=== PATIENT | male | born 1995 | race African-American/Black ===

== ENCOUNTER 2017-09-11 23:14 | Emergency (ER) | payer SELFPAY ==
[2017-09-11] MEDS ORDERED: MAG HYDROX/AL HYDROX/SIMETH SUSP 30 ML UDCUP PO ONE (23:55)
[2017-09-11] MEDS ORDERED: LIDOCAINE 2% VISCOUS SOLN 20 ML UDCUP PO ONE (23:55)
[2017-09-11] MEDS ORDERED: METOCLOPRAMIDE HCL ORAL SOLN 10 MG/10 ML UDCUP PO ONE (23:55)
[2017-09-12] MEDS ORDERED: FAMOTIDINE 20 MG TABLET PO ONE (00:12)
--- NOTE | 2017-09-12 00:21 | ER Document Report ---
ED General - General Chief Complaint: Chest Pain Stated Complaint: CHEST PAIN Time Seen by Provider: 09/11/17 23:54 Notes: Patient is a 22-year-old male without past medical history, no known cardiac history, no history of DVT or pulmonary embolus, had normal stress test at [facility] 3 months ago who presents with an episode of chest pain that started just prior to arrival. Patient is described as a stabbing pain in the center of his chest without radiation of the pain. It did start abruptly. Unchanged since onset. Nothing seems to improve or worsen the pain. He has a history of similar episodes in the past. He is uncertain if he has a history of esophageal reflux. He denies any trauma to the chest. No states that he had nausea, vomiting or shortness of breath. No use of estrogen. TRAVEL OUTSIDE OF THE [place] IN LAST 30 DAYS: No - Related Data Allergies/Adverse Reactions: Penicillins Allergy (Verified 10/20/15 22:27) Past Medical History - General Information source: Patient - Social History Smoking Status: Current Some Day Smoker Chew tobacco use (# tins/day): No Frequency of alcohol use: Social Drug Abuse: None Lives with: Family Family History: Reviewed & Not Pertinent Patient has suicidal ideation: No Patient has homicidal ideation: No Pulmonary Medical History: Reports: Hx Asthma - as child, none now Renal/ Medical History: Denies: Hx Peritoneal Dialysis - Immunizations Hx Diphtheria, Pertussis, Tetanus Vaccination: No Review of Systems - Review of Systems Notes: Constitutional: Negative for fever. HENT: Negative for sore throat. Eyes: Negative for visual changes. Cardiovascular: Positive for chest pain. Respiratory: Negative for shortness of breath. Gastrointestinal: Negative for abdominal pain, vomiting or diarrhea. Genitourinary: Negative for dysuria. Musculoskeletal: Negative for back pain. Skin: Negative for rash. Neurological: Negative for headaches, weakness or numbness. 10 point ROS negative except as marked above and in HPI. Physical Exam - Vital signs Vitals: Temp Pulse Resp BP Pulse Ox 98.7 F 65 18 159/105 H 98 09/11/17 23:33 09/11/17 23:33 09/11/17 23:33 09/11/17 23:33 09/11/17 23:33 Interpretation: Hypertensive Notes: PHYSICAL EXAMINATION: GENERAL: Well-appearing, well-nourished and in no acute distress. HEAD: Atraumatic, normocephalic. EYES: Pupils equal round and reactive to light, extraocular movements intact, sclera anicteric, conjunctiva are normal. ENT: nares patent, oropharynx clear without exudates. Moist mucous membranes. NECK: Normal range of motion, supple without lymphadenopathy LUNGS: Breath sounds clear to auscultation bilaterally and equal. No wheezes rales or rhonchi. HEART: Regular rate and rhythm without murmurs ABDOMEN: Soft, nontender, normoactive bowel sounds. No guarding, no rebound. No masses appreciated. EXTREMITIES: Normal range of motion, no pitting or edema. No cyanosis. NEUROLOGICAL: No focal neurological deficits. Moves all extremities spontaneously and on command. PSYCH: Normal mood, normal affect. SKIN: Warm, Dry, normal turgor, no rashes or lesions noted. Course - Re-evaluation Re-evalutation: 09/12/17 00:10 Presentation of chest pain in an otherwise well appearing patient. Low clinical suspicion for ACS given clinical history, exam, EKG without ST elevations or depressions. Patient does not have any risk factors for cardiac disease and had a normal stress test 3 months ago at [facility]. PE also seems unlikely given clinical history, absence of tachycardia or dyspnea. Patient is PERC criteria negative. CXR without evidence of pneumothorax or pneumonia. No widened mediastinum. Aortic dissection also seems unlikely given history, symmetric pulses, CXR, and vitals. Bedside echocardiogram does not demonstrate any evidence of regional wall motion abnormality or pericardial effusion. Suspect likely musculoskeletal or esophageal origin. At this time will discharge with return precautions and follow-up recommendations. Verbal discharge instructions given a the bedside and opportunity for questions given. Medication warnings reviewed. Patient is in agreement with this plan and has verbalized understanding of return precautions and the need for primary care follow-up in the next 24-72 hours. - Vital Signs Vital signs: Temp Pulse Resp BP Pulse Ox 98.7 F 65 18 159/105 H 98 09/11/17 23:33 09/11/17 23:33 09/11/17 23:33 09/11/17 23:33 09/11/17 23:33 - Diagnostic Test Radiology reviewed: Image reviewed, Reports reviewed Radiology results interpreted by me: 09/12/17 00:50 Chest x-ray: No acute infiltrate or pneumothorax - EKG Interpretation by Me Additional EKG results interpreted by me: 09/12/17 00:50 Normal sinus rhythm. Rate 68. No ST elevations or depressions. QTC is 409. Discharge - Discharge Clinical Impression: Chest pain Qualifiers: Chest pain type: unspecified Qualified Code(s): R07.9 - Chest pain, unspecified Condition: Good Disposition: HOME, SELF-CARE Additional Instructions: You were seen today for chest pain. The exact cause of your pain is unclear. However, based on your cardiac enzyme testing, chest x-ray, and EKG it does not appear that it is from an immediately life-threatening cause at this time. Your symptoms appear to be most consistent with stomach or upper intestinal irritation. Please begin taking famotidine 40 mg in the morning and 40 mg at night. This medicine can be purchased directly [id number]. You may also take medicine such as Pepto-Bismol or Tums to assist with your pain. Please return to emergency department immediately if you have worsening of your chest pain, shortness of breath, vomiting, become unable to exert yourself due to pain or difficulty breathing, you pass out, or have any pain that radiates into your arms, jaw, or back. Please also return if you have any additional symptoms that are concerning to you.
--- NOTE | 2017-09-12 00:24 | RADIOLOGY REPORT (SQ) ---
EXAM DESCRIPTION: CHEST SINGLE VIEW COMPLETED DATE/TIME: 09/12/2017 12:13 am REASON FOR STUDY: chest pain COMPARISON: [id number] EXAM PARAMETERS: NUMBER OF VIEWS: One view. TECHNIQUE: Single frontal radiographic view of the chest acquired. RADIATION DOSE: NA LIMITATIONS: None. FINDINGS: LUNGS AND PLEURA: No opacities, masses or pneumothorax. No pleural effusion. MEDIASTINUM AND HILAR STRUCTURES: No masses. Contour normal. HEART AND VASCULAR STRUCTURES: Heart normal in size. Normal vasculature. BONES: No acute findings. HARDWARE: None in the chest. OTHER: No other significant finding. IMPRESSION: NO ACUTE RADIOGRAPHIC FINDING IN THE CHEST. TECHNICAL DOCUMENTATION: JOB ID: [id number]
[2017-09-12 01:10] VITALS: BP 160/98
--- NOTE | 2017-09-12 09:40 | EKG REPORT ---
SEVERITY:- ABNORMAL ECG - SINUS RHYTHM CONSIDER LEFT VENTRICULAR HYPERTROPHY : Confirmed by: Costa Benavidez 12-Sep-2017 09:39:40
== END 2017-09-12 00:55 | disposition home or self-care (01) ==
LOC: ER 23:14
DX: R07.9 Chest pain, unspecified (principal); F17.200 Nicotine dependence, unspecified, uncomplicated; Z88.0 Allergy status to penicillin
CPT/HCPCS: 93005; 99285; 71010; 93010; J3490

== ENCOUNTER 2018-04-23 15:24 | Emergency (ER) | payer SELFPAY ==
[2018-04-23 15:31] VITALS: BP 140/95
--- NOTE | 2018-04-23 15:52 | ER Document Report ---
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 It is tender. It has some mucoid drainage in the morning. No fever or chills. No visual changes. No hx MRSA, Associated Symptoms: None Exacerbated by: Denies Relieved by: Denies - ROS ROS below otherwise negative: Yes Systems Reviewed and Negative: Yes All other systems reviewed and negative Past Medical History - General Information source: Patient - Social History Smoking Status: Current Every Day Smoker Frequency of alcohol use: None - History Drug Abuse: None Lives with: Family Family History: Reviewed & Not Pertinent Pulmonary Medical History: Reports: Hx Asthma - as child, none now Renal/ Medical History: Denies: Hx Peritoneal Dialysis Surgical Hx: Negative - Immunizations Hx Diphtheria, Pertussis, Tetanus Vaccination: No Vertical Provider Document - CONSTITUTIONAL Agree With Documented VS: Yes Exam Limitations: No Limitations General Appearance: No Apparent Distress - INFECTION CONTROL TRAVEL OUTSIDE OF THE [place] IN LAST 30 DAYS: No - HEENT HEENT: Normocephalic, PERRLA. negative: Conjuctival Injection Notes: sty right upper lateral upper lid, tender, not draining now, he was getting some drainage from it in the mornings. - NECK Neck: Supple - RESPIRATORY Respiratory: Breath Sounds Normal, No Respiratory Distress - CARDIOVASCULAR Cardiovascular: Regular Rate, Regular Rhythm Course - Vital Signs Vital signs: Temp Pulse Resp BP Pulse Ox 98.4 F 79 16 140/95 H 97 04/23/18 15:30 04/23/18 15:30 04/23/18 15:30 04/23/18 15:30 04/23/18 15:30 Discharge - Discharge Clinical Impression: Stye upper right eyelid Condition: Good Disposition: HOME, SELF-CARE Instructions: Antibiotic Therapy ([facility]), Eyedrop Use ([facility]), Sty ([facility]), Sulfa Medications ([facility]), Warm Packs ([facility]) Additional Instructions: Use baby shampoo to wash eyelid margins daily Antibiotic eyedrops See thread laster if this persists sometimes they have to be surgically removed if this does not work Warm compress See family practice doctor for your routine care Return to the emergency room any concerns or recurrent numbness or tingling Prescriptions: Sulfacetamide Sodium [Bleph-10] 2 drop OD QID #5 ml Forms: Return to Work
== END 2018-04-23 16:12 | disposition home or self-care (01) ==
LOC: ER 15:24
DX: H00.021 Hordeolum internum right upper eyelid (principal); F17.200 Nicotine dependence, unspecified, uncomplicated
CPT/HCPCS: 99283

== ENCOUNTER 2018-06-26 18:34 | Emergency (ER) | payer SELFPAY ==
[2018-06-26] MEDS ORDERED: DEXAMETHASONE SOD PHOS INJ 10 MG/1 ML VIAL IV ONE (20:21)
--- NOTE | 2018-06-26 20:23 | ER Document Report ---
ED Medical Screen (RME) - General Chief Complaint: Abdominal Cramping Stated Complaint: HEADACHE/STOMACH PAIN Time Seen by Provider: 06/26/18 20:15 Notes: 22-year-old male presents to the ER complaining of sore throat since Tuesday. He states his throat is really sore also complains some abdominal discomfort complains of muscle aches nausea. States she just feels poorly and weak all over. TRAVEL OUTSIDE OF THE [place] IN LAST 30 DAYS: No - Related Data Allergies/Adverse Reactions: Penicillins Allergy (Verified 10/20/15 22:27) Past Medical History Pulmonary Medical History: Reports: Hx Asthma - as child, none now Renal/ Medical History: Denies: Hx Peritoneal Dialysis - Immunizations Hx Diphtheria, Pertussis, Tetanus Vaccination: No Physical Exam - Vital signs Vitals: Temp Pulse Resp BP Pulse Ox 99.5 F 91 18 159/96 H 100 06/26/18 18:43 06/26/18 18:43 06/26/18 18:43 06/26/18 18:43 06/26/18 18:43 - Notes Notes: Patient has a consistent exudative tonsillitis with 2+ tonsillar hypertrophy. I could not feel his spleen but due to his size and him sitting up this is not unexpected. We will run a Monospot test a rapid strep test and generalized blood will give her some steroids for his discomfort in his throat. Course - Re-evaluation Re-evalutation: Triage assessment 06/26/18 20:25 The patient presents with a significant exudative tonsillitis this is clinical history seems to be more suggestive of mononucleosis and if strep we will do a rapid strep to check a Monospot some lab work and give him some steroids. - Vital Signs Vital signs: Temp Pulse Resp BP Pulse Ox 99.5 F 91 18 159/96 H 100 06/26/18 18:43 06/26/18 18:43 06/26/18 18:43 06/26/18 18:43 06/26/18 18:43
[2018-06-26] MEDS ORDERED: DEXAMETHASONE SOD PHOS INJ 10 MG/1 ML VIAL IM ONE (21:05)
--- NOTE | 2018-06-26 21:48 | ER Document Report ---
ED General - General Chief Complaint: Abdominal Cramping Stated Complaint: HEADACHE/STOMACH PAIN Time Seen by Provider: 06/26/18 20:15 Notes: Patient is a 22-year-old male who comes emergency department for chief complaint of sore throat and feeling feverish since Tuesday (about 3 days). He states that he feels tired, weak, aching all over including some abdominal aches and nausea. No vomiting, no shortness of breath, no difficulty swallowing reported. No obvious sick contacts. No daily medications, denies any past medical history or daily medications. TRAVEL OUTSIDE OF THE [place] IN LAST 30 DAYS: No - Related Data Allergies/Adverse Reactions: Penicillins Allergy (Verified 10/20/15 22:27) Past Medical History - General Information source: Patient - Social History Smoking Status: Former Smoker Frequency of alcohol use: Occasional Drug Abuse: None Lives with: Family Family History: Reviewed & Not Pertinent Patient has suicidal ideation: No Patient has homicidal ideation: No Pulmonary Medical History: Reports: Hx Asthma - as child, none now Renal/ Medical History: Denies: Hx Peritoneal Dialysis Surgical Hx: Negative - Immunizations Hx Diphtheria, Pertussis, Tetanus Vaccination: Yes Review of Systems - Review of Systems Constitutional: See HPI EENT: See HPI Cardiovascular: No symptoms reported Respiratory: No symptoms reported Gastrointestinal: No symptoms reported Genitourinary: No symptoms reported Male Genitourinary: No symptoms reported Musculoskeletal: No symptoms reported Skin: No symptoms reported Hematologic/Lymphatic: No symptoms reported Neurological/Psychological: No symptoms reported Physical Exam - Vital signs Vitals: Temp Pulse Resp BP Pulse Ox 99.5 F 91 18 159/96 H 100 06/26/18 18:43 06/26/18 18:43 06/26/18 18:43 06/26/18 18:43 06/26/18 18:43 - Notes Notes: GENERAL: Alert, interacts well. No acute distress. HEAD: Normocephalic, atraumatic. EYES: Pupils equal, round, and reactive to light. Extraocular movements intact. ENT: Oral mucosa moist, tongue midline. Exudative pharyngitis with tonsillitis , normal uvula, patent airway, unremarkable ENT exam otherwise. NECK: Full range of motion. Supple. Trachea midline. LUNGS: Clear to auscultation bilaterally, no wheezes, rales, or rhonchi. No respiratory distress. HEART: Regular rate and rhythm. No murmur ABDOMEN: Soft, non-tender. Non-distended. Bowel sounds present in all 4 quadrants. EXTREMITIES: Moves all 4 extremities spontaneously. No edema, normal radial and dorsalis pedis pulses bilaterally. No cyanosis. BACK: no cervical, thoracic, lumbar midline tenderness. No saddle anesthesia, normal distal neurovascular exam. NEUROLOGICAL: Alert and oriented x3. Normal speech. [cranial nerves II through XII grossly intact]. PSYCH: Normal affect, normal mood. SKIN: Warm, dry, normal turgor. No rashes or lesions noted. Course - Re-evaluation Re-evalutation: Monotest negative, strep negative. CBC shows elevated monocytes. Vital signs are unremarkable. Patient tolerating p.o. without any difficulty. He has already been given dexamethasone by triage. Soft abdomen, no overt splenomegaly , well-appearing patient. Remaining labs unremarkable. Discussed precautions with mono, recommendations, follow-up, and return precautions. Patient states understanding and agreement. - Vital Signs Vital signs: Temp Pulse Resp BP Pulse Ox 99.5 F 94 18 159/84 H 97 06/26/18 18:43 06/26/18 23:00 06/26/18 23:00 06/26/18 23:00 06/26/18 23:00 - Laboratory Result Diagrams: 06/26/18 21:13 06/26/18 21:13 Laboratory results interpreted by me: 06/26/18 06/26/18 21:13 21:13 WBC 12.0 H Hgb 12.8 L MCH 26.7 L Monocytes % 13.4 H Absolute Monocytes 1.6 H Direct Bilirubin 0.5 H AST 73 H Total Protein 8.3 H Discharge - Discharge Clinical Impression: Exudative pharyngitis Condition: Stable Disposition: HOME, SELF-CARE Additional Instructions: Your laboratory workup indicates that you have a viral infection causing your swollen lymph nodes, sore throat, fevers. The mono test and strep test are both negative. You have been treated with dexamethasone, continue Tylenol or ibuprofen for fever, body aches, rest, drink plenty fluids. Symptoms will resolve with time. There is a chance for swelling of the spleen, please observe precautions and avoid contact sports or injury risk for the next several weeks. Return for any severe abdominal pain passing out, difficulty swallowing or breathing, or any other concerning symptoms. Forms: Return to Work
[2018-06-26 21:55] LABS: ABSOLUTE LYMPHOCYTES (AUTO) 2.1 10^3/uL (0.5-4.7); ABSOLUTE MONOCYTES (AUTO) 1.6 10^3/uL (0.1-1.4); ABSOLUTE NEUT (AUTO) 8.2 10^3/uL (1.7-8.2); BASOPHILS % (AUTO) 0.3 % (0-2); EOSINOPHILS % (AUTO) 0.3 % (0-6); HEMATOCRIT 39.1 % (37.9-51.0); HEMOGLOBIN 12.8 g/dL (13.5-17.0); LYMPHOCYTES % (AUTO) 17.8 % (13-45); MEAN CORPUSCULAR HEMOGLOBIN 26.7 pg (27.0-33.4); MEAN CORPUSCULAR HGB CONC 32.8 g/dL (32.0-36.0); MEAN CORPUSCULAR VOLUME 81 fl (80-97); MONOCYTES % (AUTO) 13.4 % (3-13); PLATELET COUNT 228 10^3/uL (150-450); RED BLOOD COUNT 4.81 10^6/uL (4.35-5.55); RED CELL DISTRIBUTION WIDTH 13.9 % (11.5-14.0); SEGMENTED NEUTROPHILS % (AUTO) 68.2 % (42-78); TOTAL CELLS COUNTED % (AUTO) 100 %
[2018-06-26 22:00] LABS: ALANINE AMINOTRANSFERASE 54 U/L (21-72); ALBUMIN 4.3 g/dL (3.5-5.0); ALKALINE PHOSPHATASE 93 U/L (38-126); ANION GAP 13 (5-19); ASPARTATE AMINO TRANSFERASE 73 U/L (17-59); BILIRUBIN,DIRECT 0.5 mg/dL (0.0-0.4); BILIRUBIN,TOTAL 0.8 mg/dL (0.2-1.3); BLOOD UREA NITROGEN 13 mg/dL (7-20); CALCIUM 9.3 mg/dL (8.4-10.2); CARBON DIOXIDE 30 mmol/L (22-30); CHLORIDE 102 mmol/L (98-107); GLUCOSE 101 mg/dL (75-110); SODIUM 144.8 mmol/L (137-145); TOTAL PROTEIN 8.3 g/dL (6.3-8.2)
[2018-06-26 23:15] VITALS: BP 159/84
== END 2018-06-26 23:05 | disposition home or self-care (01) ==
LOC: ER 18:34
DX: J02.9 Acute pharyngitis, unspecified (principal); D72.821 Monocytosis (symptomatic); R53.83 Other fatigue; R53.1 Weakness; R10.9 Unspecified abdominal pain; R11.0 Nausea; Z88.0 Allergy status to penicillin
CPT/HCPCS: 99284; 96372; 36415; 87070; 87880; 85025; 87077; 86308; 80053; J1100

== ENCOUNTER 2018-12-06 14:11 | Emergency (ER) | payer SELFPAY ==
--- NOTE | 2018-12-06 15:57 | ER Document Report ---
HPI - HPI Time Seen by Provider: 12/06/18 15:12 Pain Level: 2 Notes: Patient is a 23-year-old male who presents to the emergency department with chief complaint of drainage from his right eye. Patient reports this is been going on for approximately 6 months. He states that every morning he wakes up his eyes crusted shut. Throughout the day he pulls out large stringy like mucus and drainage from the right eye. Patient denies any pain to the eye but reports itchiness. Patient currently does not wear any corrective lenses or contacts but he does report wearing contact lenses as a teenager. States this has been many years. - CONSTITUTIONAL Constitutional: DENIES: Fever, Chills - EENT EENT: REPORTS: Eye problems - R eye Past Medical History - General Information source: Patient - Social History Smoking Status: Never Smoker Frequency of alcohol use: Occasional Drug Abuse: None Family History: Reviewed & Not Pertinent Patient has suicidal ideation: No Patient has homicidal ideation: No Pulmonary Medical History: Reports: Hx Asthma - as child, none now Renal/ Medical History: Denies: Hx Peritoneal Dialysis - Immunizations Hx Diphtheria, Pertussis, Tetanus Vaccination: Yes Vertical Provider Document - CONSTITUTIONAL Notes: PHYSICAL EXAMINATION: GENERAL: Well-appearing, well-nourished and in no acute distress. HEAD: Atraumatic, normocephalic. EYES: Pupils equal round extraocular movements intact, conjunctiva are normal, edema to right eyelid with purulent drainage. ENT: Nares patent NECK: Normal range of motion LUNGS: No respiratory distress Musculoskeletal: Normal range of motion NEUROLOGICAL: Normal speech, normal gait. PSYCH: Normal mood, normal affect. SKIN: Warm, Dry, normal turgor, no rashes or lesions noted. - INFECTION CONTROL TRAVEL OUTSIDE OF THE [place] IN LAST 30 DAYS: No Course - Re-evaluation Re-evalutation: Patient's right eye was examined using fluorescein stain under the Wood lamp. No corneal abrasion noted. Patient has moderate swelling to his right upper lid with mild purulent drainage. Dr. Blandon came to the bedside to evaluate the patient. Upon lifting at the upper eyelid there is a stye to the internal surface of the upper eyelid. Will place patient on p.o. doxycycline and have patient follow-up with ophthalmology. I called ophthalmology supervisor display fabrication Dr. Arias who agrees to see this patient in the office for drainage of the stye. Patient will call for an appointment. Patient given ED return precautions. - Vital Signs Vital signs: Temp Pulse Resp BP Pulse Ox 98.6 F 88 18 161/97 H 98 12/06/18 14:16 12/06/18 14:16 12/06/18 14:16 12/06/18 14:16 12/06/18 14:16 Discharge - Discharge Clinical Impression: Internal hordeolum of right eye Qualifiers: Eyelid: upper Qualified Code(s): H00.021 - Hordeolum internum right upper eyelid Condition: Stable Disposition: HOME, SELF-CARE Additional Instructions: Sty Your examination reveals that you have a sty. This is an infection of a hair follicle in the eyelid. As the infection progresses, it forms an abscess along the edge of the eyelid. A sty causes a lot of swelling and tenderness. As the body fights the infection, a lump forms. The knot slowly goes away over a couple of weeks. Treatment includes applying warm compresses to the eye for 10 to 15 minutes every two or three hours. Usually, the infection will drain from the abscess spontaneously, however, some sties require surgical drainage. You may be given antibiotic eye drops to prevent the infection from spreading to the surface of the eye. If the doctor is concerned that the infection is severe, you may be given antibiotics by mouth or shot. Call the doctor at once if vision decreases, if swelling becomes severe, or if eye pain becomes severe. See the doctor for follow-up should you fail to improve as expected. Please use warm compresses to your eye at least 4 times a day. Make sure they are is as hot as you can tolerate. Placed them near the eye for at least 15 minutes. Massage the eye with clean hands. Please take antibiotics as prescribed, doxycycline twice daily for 7 days. Call office [facility] and schedule an appointment so that Dr. Arias can evaluate you and possibly drain the stye. Prescriptions: Doxycycline Hyclate 100 mg PO BID #14 capsule Referrals: SAMREEN ARIAS DO [ACTIVE STAFF] - Follow up as needed
[2018-12-06 16:27] VITALS: BP 152/85
--- NOTE | 2018-12-07 22:48 | ER Document Report ---
Doctor's Note Notes: I personally and independently obtained patient history and examined the patient in conjunction with the APC and agree with the assessment, treatment plan and disposition of the patient as recorded by the APC, and have reviewed the APC's note. HISTORY OF PRESENT ILLNESS: Patient is a 23 year old male that presents to the emergency department for chief complaint of right eye pain and drainage. Patient reports that this has been ongoing for sometime, over weeks time. Denies fevers, chills, headaches, or vision loss. ROS: Constitutional: Negative for fever. Cardiovascular: Negative for chest pain. Respiratory: Negative for shortness of breath. Gastrointestinal: Negative for vomiting or abdominal pain Musculoskeletal: Negative for arm, leg or back pain Skin: Negative for rash. Neurological: Negative for weakness or numbness. Other than noted above, the 12 point review of systems was reviewed with the patient and were negative, all pertinent findings are included in the HPI. PHYSICAL EXAMINATION: Vital signs reviewed, nursing noted reviewed. GENERAL: Well-appearing, well-nourished and in no acute distress. HEAD: Atraumatic, normocephalic. EYES: right upper lid noted to have hordoleum, and drainage. No significant conjunctival injection. EOMI, PERRLA ENT: nares patent, Moist mucous membranes. NECK: Normal range of motion, supple without lymphadenopathy LUNGS: Breath sounds clear to auscultation bilaterally and equal. No wheezes rales or rhonchi. HEART: Regular rate and rhythm without murmurs EXTREMITIES: Nontender, good range of motion, no pitting or edema. NEUROLOGICAL: No focal neurological deficits. Moves all extremities spontaneously Motor and sensory grossly intact on exam. PSYCH: Normal mood, normal affect. SKIN: Warm, Dry, normal turgor, no rashes or lesions noted on exposed MEDICAL DECISION MAKING: Patient exam most consitent with stye, that may need incision and drainage from ophthalmology given duration of symptoms, recommend treatment with doxycycline and follow-up with ophthalmology at this point, and patient is agreeable with this plan of care. Please review detail APC documentation. *Note is created using voice recognition software and may contain spelling, syntax or grammatical errors.
== END 2018-12-06 16:27 | disposition home or self-care (01) ==
LOC: ER 14:11
DX: H00.021 Hordeolum internum right upper eyelid (principal)
CPT/HCPCS: 99283

== ENCOUNTER 2019-02-08 11:26 | Emergency (ER) | payer SELFPAY ==
[2019-02-08 11:31] VITALS: BP 164/95
--- NOTE | 2019-02-08 12:08 | ER Document Report ---
ED General - General Chief Complaint: Drainage from Eye Stated Complaint: RIGHT EYE IRRITATION, DRAINAGE Time Seen by Provider: 02/08/19 11:53 Primary Care Provider: IRVIN CACERES MD [ACTIVE STAFF] - Follow up tomorrow Notes: Patient is a 23-year-old male that presents to the emergency department for chief complaint of right eye drainage. Patient reports this is been going on for the last few days, seemingly gotten worse over time, he had a similar episode about a month ago, was on doxycycline and it did get better for some time, but then it seemed to get worse again at the same [place] been affected. He denies any any fevers, chills, night sweats. He does have some pain associated with this, he currently rates the pain as a 3 out of 10. He has had some blurred vision with it, but denies having any pain with extraocular eye movement. 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 Denies a loss of vision. Past Medical History: Denies chronic medical conditions Past Surgical History: Denies surgical history Social History: Denies tobacco, alcohol or drug use. Family History: Reviewed and noncontributory for presenting illness Allergies: Reviewed, see documented allergy list. REVIEW OF SYSTEMS: Other than noted above, the 12 point review of systems was reviewed with the patient and were negative, all pertinent findings are included in the HPI. PHYSICAL EXAMINATION: Vital signs reviewed, nursing noted reviewed. GENERAL: Well-appearing, well-nourished and in no acute distress. HEAD: Atraumatic, normocephalic. EYES: Right conjunctival injection, with purulent drainage, preseptal swelling and edema mild tenderness and erythema. Fluorescein dye exam, negative for corneal abrasion or noted foreign body. The lids were flipped, no foreign body noted. Left eye is unremarkable, EOMI, PERRLA. ENT: Moist mucous membranes. NECK: Normal range of motion, supple without lymphadenopathy LUNGS: Breath sounds clear to auscultation bilaterally and equal. No wheezes rales or rhonchi. HEART: Regular rate and rhythm without murmurs EXTREMITIES: Nontender, good range of motion, no pitting or edema. NEUROLOGICAL: No focal neurological deficits. Moves all extremities spontaneously Motor and sensory grossly intact on exam. PSYCH: Normal mood, normal affect. SKIN: Warm, Dry, normal turgor, no rashes or lesions noted on exposed skin TRAVEL OUTSIDE OF THE [place] IN LAST 30 DAYS: No - Related Data Allergies/Adverse Reactions: Penicillins Allergy (Verified 02/08/19 11:28) Past Medical History - Social History Smoking Status: Current Some Day Smoker Family History: Reviewed & Not Pertinent Patient has suicidal ideation: No Patient has homicidal ideation: No Pulmonary Medical History: Reports: Hx Asthma - as child, none now Renal/ Medical History: Denies: Hx Peritoneal Dialysis - Immunizations Hx Diphtheria, Pertussis, Tetanus Vaccination: Yes Physical Exam - Vital signs Vitals: Temp Pulse Resp BP Pulse Ox 97.9 F 84 16 164/95 H 98 02/08/19 11:30 02/08/19 11:30 02/08/19 11:30 02/08/19 11:30 02/08/19 11:30 Course - Re-evaluation Re-evalutation: Patient seen and examined vital signs reviewed. Patient was evaluated and treated as appropriate for the patient's presenting symptoms and complaint, with consideration of any critical or life threatening conditions that may be associated with their obtained history and exam as noted above. Patient was treated with tetracaine eyedrops, did feel better afterwards, and exam did not reveal any foreign body or corneal abrasion, was most consistent with preseptal cellulitis Evaluation was most consistent with preseptal cellulitis, will treat with ciprofloxacin, twice daily for 7 days, as well as Cipro drops, he was previously on doxycycline and had recurrence, will have him follow-up with ophthalmology, given referral. Plan of care was discussed with the patient at this point, after careful consideration I feel that that patient can be discharged from the emergency department, the patient was educated treatments and reasons to return to the emergency department based on their presumed diagnosis as noted above, they were advised to followup with a primary care physician in 2-3 days. Patient was agreeable to plan of care. *Note is created using voice recognition software and may contain spelling, syntax or grammatical errors. - Vital Signs Vital signs: Temp Pulse Resp BP Pulse Ox 97.9 F 84 16 164/95 H 98 02/08/19 11:30 02/08/19 11:30 02/08/19 11:30 02/08/19 11:30 02/08/19 11:30 Discharge - Discharge Clinical Impression: Preseptal cellulitis of right eye Condition: Stable Disposition: HOME, SELF-CARE Instructions: Conjunctivitis ([facility]) Additional Instructions: Please complete the entire course of antibiotics, and use the eyedrops as directed, and follow-up with ophthalmology, call for an appointment today. Prescriptions: RX: Ciprofloxacin HCl [Ciloxan] 1 drp OD Q4H 5 Days #1 bottle RX: Ciprofloxacin HCl [Cipro 500 mg Tablet] 500 mg PO BID #14 tablet Forms: Return to Work Referrals: IRVIN CACERES MD [ACTIVE STAFF] - Follow up tomorrow
== END 2019-02-08 12:13 | disposition home or self-care (01) ==
LOC: ER 11:26
DX: L03.213 Periorbital cellulitis (principal); H57.11 Ocular pain, right eye; H53.8 Other visual disturbances; F17.200 Nicotine dependence, unspecified, uncomplicated; J45.909 Unspecified asthma, uncomplicated
CPT/HCPCS: 99283

== ENCOUNTER 2019-06-21 00:04 | Emergency (ER) | payer SELFPAY ==
[2019-06-21] MEDS ORDERED: ACETAMINOPHEN 325 MG TABLET PO ONE (01:03)
[2019-06-21] MEDS ORDERED: ONDANSETRON HCL 8 MG TABLET PO ONE (01:03)
[2019-06-21] MEDS ORDERED: IBUPROFEN 800 MG TABLET PO ONE (01:03)
[2019-06-21 01:25] LABS: ABSOLUTE BASOPHILS # (AUTO) 0.1 10^3/uL (0.0-0.2); ABSOLUTE LYMPHOCYTES (AUTO) 1.5 10^3/uL (0.5-4.7); ABSOLUTE MONOCYTES (AUTO) 1.4 10^3/uL (0.1-1.4); ABSOLUTE NEUT (AUTO) 12.2 10^3/uL (1.7-8.2); BASOPHILS % (AUTO) 0.6 % (0-2); EOSINOPHILS % (AUTO) 0.2 % (0-6); HEMATOCRIT 40.3 % (37.9-51.0); LYMPHOCYTES % (AUTO) 9.9 % (13-45); MEAN CORPUSCULAR HEMOGLOBIN 25.7 pg (27.0-33.4); MEAN CORPUSCULAR HGB CONC 32.4 g/dL (32.0-36.0); MEAN CORPUSCULAR VOLUME 79 fl (80-97); MONOCYTES % (AUTO) 9.4 % (3-13); PLATELET COUNT 235 10^3/uL (150-450); RED BLOOD COUNT 5.08 10^6/uL (4.35-5.55); RED CELL DISTRIBUTION WIDTH 13.9 % (11.5-14.0); SEGMENTED NEUTROPHILS % (AUTO) 79.9 % (42-78); TOTAL CELLS COUNTED % (AUTO) 100 %; WHITE BLOOD COUNT 15.3 10^3/uL (4.0-10.5)
[2019-06-21 01:42] LABS: ALBUMIN 4.4 g/dL (3.5-5.0); ALKALINE PHOSPHATASE 101 U/L (38-126); ANION GAP 9 (5-19); ASPARTATE AMINO TRANSFERASE 25 U/L (17-59); BILIRUBIN,DIRECT 0.2 mg/dL (0.0-0.4); BILIRUBIN,TOTAL 0.8 mg/dL (0.2-1.3); BLOOD UREA NITROGEN 12 mg/dL (7-20); CALCIUM 9.2 mg/dL (8.4-10.2); CARBON DIOXIDE 29 mmol/L (22-30); CHLORIDE 101 mmol/L (98-107); GLUCOSE 114 mg/dL (75-110); POTASSIUM 3.9 mmol/L (3.6-5.0); TOTAL PROTEIN 7.6 g/dL (6.3-8.2)
[2019-06-21] MEDS ORDERED: AZITHROMYCIN 250 MG TABLET PO ONE (02:00)
[2019-06-21] MEDS ORDERED: PREDNISONE 20 MG TABLET PO ONE (02:00)
[2019-06-21 02:55] VITALS: BP 136/64
--- NOTE | 2019-06-21 04:37 | ER Document Report ---
Entered by MADAI ACKERMAN SCRIBE 06/21/19 0104 Acting as scribe for:RAMESH RENTERIA MD ED General - General Chief Complaint: Vomiting Stated Complaint: HEADACHE,NAUSEA,VOMITING,SORE THROAT Time Seen by Provider: 06/21/19 00:55 Notes: Patient is a 23-year-old male presenting to the emergency department complaining of multiple symptoms. Patient states that he is experiencing neck cramping, sore throat, chills, he is been extremely cold. Patient states that he also vomited today at 1600. Patient was here recently for something similar, he was discharged. Patient states that he had asthma as a kid but does not have it anymore. This 23-year-old male patient comes emergency room initially reporting a 2-day history of chills, throat pain, and back cramping. He reports that he vomited about 4 PM once. On reviewing records, I found that he was seen here on 06/15/2019 with headache, sore throat, URI symptoms. He had a rapid strep done at that time that was negative. There was no other lab work done. When have mentioned this to the patient, he then reports that his symptoms have actually been ongoing since 06/15/2019, and got worse in the past 2 days. TRAVEL OUTSIDE OF THE [place] IN LAST 30 DAYS: No - Related Data Allergies/Adverse Reactions: Penicillins Allergy (Verified 06/15/19 19:03) Past Medical History - General Information source: Patient - Social History Smoking Status: Never Smoker Cigarette use (# per day): No Chew tobacco use (# tins/day): No Frequency of alcohol use: None Drug Abuse: None Lives with: Spouse/Significant other Family History: Hypertension Pulmonary Medical History: Reports: Hx Asthma - as child, none now Renal/ Medical History: Denies: Hx Peritoneal Dialysis - Immunizations Hx Diphtheria, Pertussis, Tetanus Vaccination: Yes Review of Systems - Review of Systems Constitutional: See HPI, Chills EENT: No symptoms reported Cardiovascular: No symptoms reported Respiratory: See HPI, Other - Sore throat Gastrointestinal: See HPI, Vomiting Genitourinary: No symptoms reported Male Genitourinary: No symptoms reported Musculoskeletal: See HPI, Neck pain - Cramping Skin: No symptoms reported Hematologic/Lymphatic: No symptoms reported Neurological/Psychological: No symptoms reported -: Yes All other systems reviewed and negative Physical Exam - Vital signs Vitals: Temp Pulse Resp BP Pulse Ox 101.4 F H 109 H 16 183/103 H 100 06/21/19 00:08 06/21/19 00:08 06/21/19 00:08 06/21/19 00:08 06/21/19 00:08 - Notes Notes: Physical Exam: General: Alert, appears well. HEENT:TMs retracted. Tonsillar exudate with erythema. Posterior pharyngeal erythema with minimal edema to the uvula. Anterior cervical gland swelling, with mild tenderness to palpation. Atraumatic. PERRL. Extraocular movements intact. Neck: Supple. Non-tender. Respiratory: No respiratory distress. Clear and equal breath sounds bilaterally. Cardiovascular: Regular rate and rhythm. Abdominal: Normal Inspection. Non-tender. No distension. Normal Bowel Sounds. Back: Non-tender. Extremities: Moves all four extremities. Upper extremities: Normal inspection. Normal ROM. Lower extremities: Normal inspection. No edema. Normal ROM. Neurological: Normal cognition. AAOx4. Normal speech. Psychological: Normal affect. Normal Mood. Skin: Warm. Dry. Normal color. Course - Vital Signs Vital signs: Temp Pulse Resp BP Pulse Ox 98.9 F 90 20 136/64 H 99 06/21/19 02:54 06/21/19 02:54 06/21/19 02:54 06/21/19 02:54 06/21/19 02:54 - Laboratory Result Diagrams: 06/21/19 01:00 06/21/19 01:00 Laboratory results interpreted by me: 06/21/19 06/21/19 01:00 01:00 WBC 15.3 H Hgb 13.0 L MCV 79 L MCH 25.7 L Seg Neutrophils % 79.9 H Lymphocytes % 9.9 L Absolute Neutrophils 12.2 H Glucose 114 H Discharge - Discharge Clinical Impression: Strep pharyngitis Fever Qualifiers: Fever type: unspecified Qualified Code(s): R50.9 - Fever, unspecified High blood pressure Qualifiers: Hypertension type: essential hypertension Qualified Code(s): I10 - Essential (primary) hypertension Condition: Stable Disposition: HOME, SELF-CARE Additional Instructions: Strep Throat Your sore throat is due to the streptococcus germ (strep throat). Strep throat usually makes you feel quite ill with fever and aches, headache, swollen sore throat, and tender bumps under the angles of the jaw. Strep throat requires antibiotic treatment. Although the sore throat may go away by itself, complications such as rheumatic fever, kidney disease, or throat abscess can occur. We usually prescribe antibiotics by mouth. Be sure to take the medicine until it's gone. If you stop early, the strep may come back. If you are vomiting, are severely ill, or can't remember to take pills, we can give you an antibiotic shot. Take acetaminophen or ibuprofen for pain and fever. Sip frequent clear liquids, or use popsicles or ice chips. Anesthetic sprays or lozenges may help. Make sure the air in the room is not too dry. Avoid using decongestants or antihistamines. Call the doctor if there is no improvement in three days, or if you have difficulty breathing, increasing throat pain, high fever, rash, or frequent vomiting. High Blood Pressure, Requiring Treatment: Your blood pressure is high. This is called "hypertension." Today's reading was 183/103 (normal is less than 140/90). Your history and exam suggest that this is not a temporary problem. You need treatment of your blood pressure. Hypertension: The patient has been informed that they haveHypertension based on a blood pressure reading in the emergency department. I recommend that the patient call the primary care provider listed on their discharge instructions or a physician of their choice this wee to arrange follow up for further evaluation of possible pre-hypertension or Hypertension. If left untreated, high blood pressure greatly increases your risk of heart attack and stroke. Please don't ignore this problem. If you have blood pressure medicine but aren't using it regularly, start taking it again. Some simple things you can do to help are: Get some aerobic exercise for at least 20 minutes on a daily basis. (See your doctor before beginning any new exercise program.) Eat a low-fat diet. Lose excess weight. Avoid salty foods and avoid adding salt to any of the foods you eat. Avoid diet pills, deco ngestants, "energizing" herbs, and other medicines that elevate blood pressure. There are many different medicines that treat blood pressure. If your medication causes unpleasant side effects, call your doctor. There are others you can try. Treating hypertension is a life-long investment in your health. Take medications as prescribed. Drink plenty of fluids and get plenty of rest. Take Tylenol every 4 hours for fever. Follow-up with a local primary care provider to start treating your high blood pressure. RETURN TO THE EMERGENCY ROOM IF ANY NEW OR WORSENING SYMPTOMS. Prescriptions: Azithromycin [Zithromax 250 mg Tablet] 250 mg PO ASDIR PRN #6 tablet PRN Reason: Forms: Return to Work Scribe Attestation: 06/21/19 02:05 I personally performed the services described in the documentation, reviewed and edited the documentation which was dictated to the scribe in my presence, and it accurately records my words and actions. I personally performed the services described in the documentation, reviewed and edited the documentation which was dictated to the scribe in my presence, and it accurately records my words and actions.
== END 2019-06-21 03:00 | disposition home or self-care (01) ==
LOC: ER 00:04
DX: J02.0 Streptococcal pharyngitis (principal); R51 Headache; I10 Essential (primary) hypertension; R11.2 Nausea with vomiting, unspecified; J45.909 Unspecified asthma, uncomplicated
CPT/HCPCS: 99283; 36415; 87880; 85025; 86308; 80053; S0119; J7512

== ENCOUNTER 2019-06-21 16:26 | Emergency (ER) | payer SELFPAY ==
[2019-06-21] MEDS ORDERED: ACETAMINOPHEN 325 MG TABLET PO ONE (17:31)
[2019-06-21] MEDS ORDERED: NORMAL SALINE 1000 ML 1,000 ML IV PRN (17:31)
[2019-06-21] MEDS ORDERED: KETOROLAC TROMETHAMINE INJ/PF 30 MG/1 ML SDV IV ONE (17:32)
[2019-06-21] MEDS ORDERED: DIPHENHYDRAMINE HCL 50 MG/ML VIAL IV ONE (17:32)
[2019-06-21] MEDS ORDERED: ONDANSETRON HCL INJ/PF 4 MG/2 ML SDV IV ONE (17:32)
[2019-06-21] MEDS ORDERED: DEXAMETHASONE SOD PHOS INJ 10 MG/1 ML VIAL IV ONE (17:32)
--- NOTE | 2019-06-21 17:42 | ER Document Report ---
ED Medical Screen (RME) - General Chief Complaint: Headache Stated Complaint: DIZZINESS Time Seen by Provider: 06/21/19 17:35 Mode of Arrival: Ambulatory Information source: Patient Notes: 23-year-old male presented to ED for complaint of headache x6 days. He states he was seen here yesterday and was diagnosed with strep and high blood pressure. He states he was at work today when he passed out. He states he was diagnosed with strep yesterday and given a azithromycin. He is alert and oriented but states he feels horrible. I have greeted and performed a rapid initial assessment of this patient. A comprehensive ED assessment and evaluation of the patient, analysis of test results and completion of medical decision making process will be conducted by an additional ED providers. Dictation of this chart was performed using voice recognition software; therefore, there may be some unintended grammatical errors. TRAVEL OUTSIDE OF THE [place] IN LAST 30 DAYS: No - Related Data Allergies/Adverse Reactions: Penicillins Allergy (Verified 06/21/19 16:27) Past Medical History Pulmonary Medical History: Reports: Hx Asthma - as child, none now Renal/ Medical History: Denies: Hx Peritoneal Dialysis - Immunizations Hx Diphtheria, Pertussis, Tetanus Vaccination: Yes Physical Exam - Vital signs Vitals: Temp Pulse Resp BP Pulse Ox 102.6 F H 103 H 20 167/85 H 99 06/21/19 16:41 06/21/19 16:41 06/21/19 16:41 06/21/19 16:41 06/21/19 16:41 Course - Vital Signs Vital signs: Temp Pulse Resp BP Pulse Ox 102.6 F H 103 H 20 142/72 H 99 06/21/19 16:41 06/21/19 16:41 06/21/19 16:41 06/21/19 17:35 06/21/19 16:41
[2019-06-21 18:20] LABS: ABSOLUTE LYMPHOCYTES (AUTO) 1.8 10^3/uL (0.5-4.7); ABSOLUTE MONOCYTES (AUTO) 1.8 10^3/uL (0.1-1.4); ABSOLUTE NEUT (AUTO) 14.4 10^3/uL (1.7-8.2); BASOPHILS % (AUTO) 0.3 % (0-2); HEMATOCRIT 39.6 % (37.9-51.0); HEMOGLOBIN 12.9 g/dL (13.5-17.0); LYMPHOCYTES % (AUTO) 10.1 % (13-45); MEAN CORPUSCULAR HGB CONC 32.5 g/dL (32.0-36.0); MEAN CORPUSCULAR VOLUME 80 fl (80-97); MONOCYTES % (AUTO) 10.2 % (3-13); PLATELET COUNT 251 10^3/uL (150-450); RED BLOOD COUNT 4.96 10^6/uL (4.35-5.55); RED CELL DISTRIBUTION WIDTH 14.2 % (11.5-14.0); SEGMENTED NEUTROPHILS % (AUTO) 79.4 % (42-78); TOTAL CELLS COUNTED % (AUTO) 100 %; WHITE BLOOD COUNT 18.1 10^3/uL (4.0-10.5)
[2019-06-21 18:30] LABS: APPEARANCE,URINE CLEAR; BILIRUBIN,URINE NEGATIVE (NEGATIVE); COLOR,URINE YELLOW; GLUCOSE, URINE NEGATIVE (NEGATIVE); KETONES,URINE NEGATIVE (NEGATIVE); LEUKOCYTE ESTERASE,URINE NEGATIVE (NEGATIVE); NITRITE,URINE NEGATIVE (NEGATIVE); PROTEIN,URINE NEGATIVE (NEGATIVE); URINE SPECIFIC GRAVITY 1.027
[2019-06-21 18:36] LABS: ADD MANUAL MICROSCOPIC YES
[2019-06-21 18:45] LABS: ALBUMIN 4.4 g/dL (3.5-5.0); ALKALINE PHOSPHATASE 104 U/L (38-126); ANION GAP 10 (5-19); ASPARTATE AMINO TRANSFERASE 27 U/L (17-59); BILIRUBIN,DIRECT 0.3 mg/dL (0.0-0.4); BILIRUBIN,TOTAL 0.5 mg/dL (0.2-1.3); BLOOD UREA NITROGEN 15 mg/dL (7-20); C-REACTIVE PROTEIN 78.6 mg/L (<10.0); CALCIUM 9.1 mg/dL (8.4-10.2); CARBON DIOXIDE 30 mmol/L (22-30); CHLORIDE 99 mmol/L (98-107); GLUCOSE 104 mg/dL (75-110); POTASSIUM 3.6 mmol/L (3.6-5.0); TOTAL PROTEIN 7.8 g/dL (6.3-8.2)
[2019-06-21] MEDS ORDERED: MORPHINE SULFATE 10 MG/ML INJ IV ONE (20:51)
--- NOTE | 2019-06-21 20:52 | ER Document Report ---
ED General - General Chief Complaint: Headache Stated Complaint: DIZZINESS Time Seen by Provider: 06/21/19 17:35 Primary Care Provider: [facility] [Provider Group] - Follow up as needed [facility] [Provider Group] - Follow up as needed Mode of Arrival: Ambulatory Notes: Patient is a 23-year-old male that comes emergency department for chief complaint of sore throat, fevers, weakness, and he states he went to work but passed out while he was standing at work. He did hit the back of his head, however he denies vomiting, he denies current headache, he states his throat hurts and he feels really weak. Patient was seen here yesterday, diagnosed with positive strep throat from a throat swab, took 1 dose of azithromycin 500 mg earlier today. He denies other medications or medical problems. He denies alcohol today. TRAVEL OUTSIDE OF THE [place] IN LAST 30 DAYS: No - Related Data Allergies/Adverse Reactions: Penicillins Allergy (Verified 06/21/19 16:27) Past Medical History - General Information source: Patient - Social History Smoking Status: Current Every Day Smoker Smoking Education Provided: Yes - <3 min Frequency of alcohol use: None Drug Abuse: None Lives with: Family Family History: Hypertension Patient has suicidal ideation: No Patient has homicidal ideation: No Pulmonary Medical History: Reports: Hx Asthma - as child, none now Renal/ Medical History: Denies: Hx Peritoneal Dialysis - Immunizations Hx Diphtheria, Pertussis, Tetanus Vaccination: Yes Review of Systems - Review of Systems Constitutional: See HPI EENT: See HPI Cardiovascular: No symptoms reported Respiratory: No symptoms reported Gastrointestinal: No symptoms reported Genitourinary: No symptoms reported Male Genitourinary: No symptoms reported Musculoskeletal: No symptoms reported Skin: No symptoms reported Hematologic/Lymphatic: No symptoms reported Neurological/Psychological: See HPI Physical Exam - Vital signs Vitals: Temp Pulse Resp BP Pulse Ox 102.6 F H 103 H 20 167/85 H 99 06/21/19 16:41 06/21/19 16:41 06/21/19 16:41 06/21/19 16:41 06/21/19 16:41 - Notes Notes: GENERAL: Alert, interacts well. No acute distress. HEAD: Normocephalic, atraumatic. EYES: Pupils equal, round, and reactive to light. Extraocular movements intact. ENT: Oral mucosa moist, tongue midline. Exudative pharyngitis, uvula midline, no evidence of abscess. Airway patent. Nares patent, no nasal septal hematoma, TM's intact. NECK: Full range of motion. Supple. Trachea midline. LUNGS: Clear to auscultation bilaterally, no wheezes, rales, or rhonchi. No respiratory distress. HEART: Regular rate and rhythm. No murmur ABDOMEN: Soft, non-tender. Non-distended. Bowel sounds present in all 4 quadrants. GENITOURINARY: Deferred EXTREMITIES: Moves all 4 extremities spontaneously. No edema, normal radial and dorsalis pedis pulses bilaterally. No cyanosis. BACK: no cervical, thoracic, lumbar midline tenderness. No saddle anesthesia, normal distal neurovascular exam. Moves all extremities in full range of motion. NEUROLOGICAL: Alert and oriented x3. Normal speech. Cranial nerves II through XII grossly intact. PSYCH: Normal affect, normal mood. SKIN: Warm, dry, normal turgor. No rashes or lesions noted. Course - Re-evaluation Re-evalutation: On my exam patient is very well-appearing. He denies headache. He denies any current symptoms. There is no open wound or sign of injury over the back of the head where he states he hit his head. No neurological deficits. Denies alcohol, loss of consciousness, vomiting. Based on his evaluation I have very low suspicion of any intracranial normality. Patient does have exudative phar yngitis, he is tolerating his secretions very well, his physical examination is otherwise completely unremarkable. CBC does show leukocytosis, he did have a positive strep test. Urine showing dehydration. Patient has been given pain medicine, IV fluids, dexamethasone, and he is on azithromycin because of his allergy to penicillin. He states he gets anaphylaxis with penicillin. He should have appropriate coverage. Provided with work-release, discussed expectations, follow-up, and return precautions. Patient states understanding and agreement. Note: Patient is tall and lanky, I suspect the 119 kg was placed incorrectly and patient is actually 119 pounds. - Vital Signs Vital signs: Temp Pulse Resp BP Pulse Ox 99.4 F 76 17 145/79 H 96 06/21/19 21:03 06/21/19 21:03 06/21/19 21:03 06/21/19 21:03 06/21/19 21:03 - Laboratory Result Diagrams: 06/21/19 18:02 06/21/19 18:02 Laboratory results interpreted by me: 06/21/19 06/21/19 06/21/19 17:46 18:02 18:02 WBC 18.1 H Hgb 12.9 L MCH 26.0 L RDW 14.2 H Seg Neutrophils % 79.4 H Lymphocytes % 10.1 L Absolute Neutrophils 14.4 H Absolute Monocytes 1.8 H C-Reactive Protein 78.6 H Urine Urobilinogen 4.0 H Urine Ascorbic Acid 20 H Discharge - Discharge Clinical Impression: Strep pharyngitis, Exudative pharyngitis Episode of syncope Qualifiers: Syncope type: unspecified Qualified Code(s): R55 - Syncope and collapse Condition: Stable Disposition: HOME, SELF-CARE Additional Instructions: You have a strep throat infection of the throat causing swelling of the throat, weakness, and fevers. You have been treated with dexamethasone, this should help improve your symptoms of throat swelling and general symptoms more rapidly. Continue the antibiotic intake to completion. Take Tylenol or ibuprofen if needed for fever, drink plenty fluids, and rest. Symptoms should resolve with time. Return if you worsen including difficulty breathing or swallowing, continued spiking fevers, or any other concerning symptoms. See head injury precautions listed below. Your blood pressure was elevated today. Please follow-up with the primary care referral for additional management of this. Head Injury Precautions At this point, there is no evidence that your head injury is serious. Observati on is necessary, however. Limit activity for the first 24 hours. During the first 24 hours, check to see approximately every two to three hours that the patient is easily arousable, responds normally, and can perform common tasks such as walking without difficulty. Contact your doctor or go to the hospital if any of the following things occur: Persistent vomiting, difficulty in arousing the patient, worsening or continued headache, or failure to improve as expected. Head injuries can cause symptoms that persist for a few days or even a few weeks. Forms: Return to Work, Elevated Blood Pressure Referrals: [facility] [Provider Group] - Follow up as needed [facility] [Provider Group] - Follow up as needed
[2019-06-21 21:05] VITALS: BP 145/79
== END 2019-06-21 21:18 | disposition home or self-care (01) ==
LOC: ER 16:26
DX: J02.0 Streptococcal pharyngitis (principal); R51 Headache; R50.9 Fever, unspecified; R53.1 Weakness; F17.200 Nicotine dependence, unspecified, uncomplicated
CPT/HCPCS: 99283; 96361; 96374; 96375; 36415; 83605; 87070; 86140; 81001; J1200; J1885; J2270; J2405; J7030; J1100

== ENCOUNTER 2019-09-08 12:43 | Emergency (ER) | payer SELFPAY ==
[2019-09-08] MEDS ORDERED: ONDANSETRON HCL INJ/PF 4 MG/2 ML SDV IV ONE (12:48)
[2019-09-08] MEDS ORDERED: NORMAL SALINE 1000 ML 1,000 ML IV ONE (12:48)
--- NOTE | 2019-09-08 12:49 | ER Document Report ---
ED Medical Screen (RME) - General Stated Complaint: VOMITING,DIRREHA Time Seen by Provider: 09/08/19 12:46 Mode of Arrival: Ambulatory Information source: Patient Notes: Patient presents complaining of nausea vomiting diarrhea that started this morning. Patient complains of left lower quadrant pain that radiates to the back. No fever. I have greeted and performed a rapid initial assessment of this patient. A com prehensive ED assessment and evaluation of the patient, analysis of test results and completion of the medical decision making process will be conducted by additional ED providers. TRAVEL OUTSIDE OF THE [place] IN LAST 30 DAYS: No - Related Data Allergies/Adverse Reactions: Penicillins Allergy (Verified 06/21/19 16:27) Past Medical History Pulmonary Medical History: Reports: Hx Asthma - as child, none now Renal/ Medical History: Denies: Hx Peritoneal Dialysis - Immunizations Hx Diphtheria, Pertussis, Tetanus Vaccination: Yes Physical Exam - Abdominal Tenderness: Tender - Left lower quadrant
[2019-09-08 13:33] LABS: ABSOLUTE EOSINOPHILS # (AUTO) 0.1 10^3/uL (0.0-0.6); ABSOLUTE LYMPHOCYTES (AUTO) 2.6 10^3/uL (0.5-4.7); ABSOLUTE MONOCYTES (AUTO) 0.7 10^3/uL (0.1-1.4); ABSOLUTE NEUT (AUTO) 4.2 10^3/uL (1.7-8.2); BASOPHILS % (AUTO) 0.5 % (0-2); EOSINOPHILS % (AUTO) 1.9 % (0-6); HEMATOCRIT 41.9 % (37.9-51.0); HEMOGLOBIN 13.7 g/dL (13.5-17.0); MEAN CORPUSCULAR HEMOGLOBIN 26.4 pg (27.0-33.4); MEAN CORPUSCULAR HGB CONC 32.6 g/dL (32.0-36.0); MEAN CORPUSCULAR VOLUME 81 fl (80-97); MONOCYTES % (AUTO) 8.7 % (3-13); PLATELET COUNT 252 10^3/uL (150-450); RED BLOOD COUNT 5.18 10^6/uL (4.35-5.55); SEGMENTED NEUTROPHILS % (AUTO) 54.9 % (42-78); TOTAL CELLS COUNTED % (AUTO) 100 %; WHITE BLOOD COUNT 7.7 10^3/uL (4.0-10.5)
[2019-09-08] MEDS ORDERED: FAMOTIDINE INJ/PF 20 MG/2 ML SDV IV ONE (13:47)
[2019-09-08] MEDS ORDERED: LOPERAMIDE HCL 2 MG CAPSULE PO ONE (13:47)
--- NOTE | 2019-09-08 13:49 | ER Document Report ---
ED General - General Chief Complaint: Nausea/Vomiting/Diarrhea Stated Complaint: VOMITING,DIRREHA Time Seen by Provider: 09/08/19 12:46 Mode of Arrival: Ambulatory Information source: Patient, [facility] Records Notes: 24-year-old male with no reported past medical history presents with complaint of nausea, vomiting, diarrhea that started this morning. Patient states that he awoke at 5 AM and began vomiting and shortly afterward has had persistent diarrhea that has been nonbloody. Patient denies recent antibiotic use, travel but has had sick contacts with the daughter who is in preschool with similar symptoms. Patient denies abdominal pain, chest pain, shortness of breath, fever, chills. TRAVEL OUTSIDE OF THE [place] IN LAST 30 DAYS: No - HPI Onset: Just prior to arrival Onset/Duration: Sudden Quality of pain: Achy Severity: Mild Associated symptoms: Diarrhea, Nausea, Vomiting. denies: Chest pain, Chills, Nonproductive cough, Fever, Shortness of breath Exacerbated by: Denies Relieved by: Denies Similar symptoms previously: No Recently seen / treated by doctor: No - Related Data Allergies/Adverse Reactions: Penicillins Allergy (Verified 06/21/19 16:27) Past Medical History - General Information source: Patient - Social History Smoking Status: Current Every Day Smoker Cigarette use (# per day): Yes - 10 Chew tobacco use (# tins/day): No Smoking Education Provided: Yes - Smoking cessation counseling was provided for 4 minutes at the bedside Frequency of alcohol use: None Drug Abuse: None Lives with: Family Family History: Hypertension Patient has suicidal ideation: No Patient has homicidal ideation: No Pulmonary Medical History: Reports: Hx Asthma - as child, none now Renal/ Medical History: Denies: Hx Peritoneal Dialysis - Immunizations Hx Diphtheria, Pertussis, Tetanus Vaccination: Yes Review of Systems - Review of Systems Notes: REVIEW OF SYSTEMS: CONSTITUTIONAL : Denies fever, chills, or sweats. Denies recent illness. Denies weight loss, recent hospitalizations. EENT: Denies visual changes, eye pain. Denies sore throat, oral lesions, difficulty swallowing. CARDIOVASCULAR: Denies chest pain. Denies palpitations. Denies lower extremity edema. RESPIRATORY: Denies cough. Denies shortness of breath, wheezing. GASTROINTESTINAL: Denies abdominal pain or distention. + nausea, vomiting, or diarrhea. Denies blood in vomitus, stools, or per rectum. Denies black, tarry stools. Denies constipation. GENITOURINARY: Denies difficulty urinating, painful urination, frequency, blood in urine, testicular pain or penile discharge. MUSCULOSKELETAL: Denies back or neck pain or stiffness. Denies joint pain or swelling. SKIN: Denies rash, lesions or sores. HEMATOLOGIC : Denies easy bruising or bleeding. LYMPHATIC: Denies swollen glands. NEUROLOGICAL: Denies confusion or altered mental status. Denies loss of consciousness. Denies dizziness or lightheadedness. Denies headache. Denies weakness or paralysis. Denies problems difficulty with ambulation, slurred speech. Denies sensory loss, numbness, or tingling. Denies seizures. PSYCHIATRIC: Denies anxiety or stress. Denies depression, suicidal ideation, or PHYSICAL EXAMINATION: GENERAL: Well-appearing, well-nourished and in no acute distress. HEAD: Atraumatic, normocephalic. EYES: Pupils equal round and reactive to light, extraocular movements intact, sclera anicteric, conjunctiva are normal. ENT: Nares patent, oropharynx clear without exudates. Moist mucous membranes. NECK: Normal range of motion, supple without lymphadenopathy LUNGS: Breath sounds clear to auscultation bilaterally and equal. No wheezes rales or rhonchi. HEART: Regular rate and rhythm without murmurs ABDOMEN: Soft, nontender, nondistended abdomen. No guarding, no rebound. No masses appreciated. Musculoskeletal: Normal range of motion, no pitting or edema. No cyanosis. NEUROLOGICAL: Cranial nerves grossly intact. Normal speech, normal gait. Normal sensory, motor exams PSYCH: Normal mood, normal affect. SKIN: Warm, Dry, normal turgor, no rashes or lesions noted. Physical Exam - Vital signs Vitals: Temp Pulse Resp BP Pulse Ox 98.3 F 75 16 165/105 H 100 09/08/19 12:46 09/08/19 12:46 09/08/19 12:46 09/08/19 12:46 09/08/19 12:46 Course - Re-evaluation Re-evalutation: Laboratory 09/08/19 09/08/19 13:17 13:17 WBC 7.7 RBC 5.18 Hgb 13.7 Hct 41.9 MCV 81 MCH 26.4 L MCHC 32.6 RDW 14.0 Plt Count 252 Lymph % (Auto) 34.0 Ray % (Auto) 8.7 Eos % (Auto) 1.9 Baso % (Auto) 0.5 Absolute Neuts (auto) 4.2 Absolute Lymphs (auto) 2.6 Absolute Monos (auto) 0.7 Absolute Eos (auto) 0.1 Absolute Basos (auto) 0.0 Seg Neutrophils % 54.9 Sodium 142.3 Potassium 4.1 Chloride 105 Carbon Dioxide 31 H Anion Gap 6 BUN 11 Creatinine 0.94 Est GFR ( Amer) > 60 Est GFR (MDRD) Non-Af > 60 Glucose 120 H Calcium 9.3 Total Bilirubin 0.3 Direct Bilirubin 0.1 Neonat Total Bilirubin Not Reportable Neonat Direct Bilirubin Not Reportable Neonat Indirect Bili Not Reportable AST 32 ALT 35 Alkaline Phosphatase 112 Total Protein 7.7 Albumin 4.2 Lipase 53.2 Temp Pulse Resp BP Pulse Ox 98.3 F 75 16 165/105 H 100 09/08/19 12:46 09/08/19 12:46 09/08/19 12:46 09/08/19 12:46 09/08/19 12:46 09/08/19 13:49 Presentation of an overall well-appearing patient in no acute distress with complaints of nausea, vomiting, diarrhea. This is consistent with likely viral gastroenteritis. Patient has no abdominal tenderness on exam and specifically no tenderness in the RLQ, LLQ, RUQ. Overall well hydrated on exam. Able to tolerate oral intake here in the emergency department. Low clinical suspicion for any acute life-threatening etiology based on exam and history including acute cholecystitis, SBO, appendicitis, nephrolithiasis, or pylonephritis. CMP without evidence of acute hepatitis or significant dehydration. Will plan for discharge at this time with return precautions and followup recommendations. 09/08/19 14:18 Patient was evaluated and treated as appropriate for the patient's presenting symptoms and complaint, with consideration of any critical or life threatening conditions that may be associated with their obtained history and exam as noted above. All results were discussed with patient . Patient provided the opportunity to ask questions, and express concerns. Patient was educated on treatments based on their presumed diagnosis as noted above. At this time we will discharge the patient with return precautions and follow-up recommendations. Verbal discharge instructions given a the bedside. Medication warnings reviewed. Patient is in agreement with this plan and has verbalized understanding of return precautions. After careful consideration I feel that that patient can be safely discharged from the emergency department, they were advised to followup with a primary care physician in 2-3 days. Dictation on this chart was performed using voice recognition software and may result in unintended grammatical, spelling, syntax or errors. - Vital Signs Vital signs: Temp Pulse Resp BP Pulse Ox 98.3 F 75 16 165/105 H 100 09/08/19 12:46 09/08/19 12:46 09/08/19 12:46 09/08/19 12:46 09/08/19 12:46 - Laboratory Result Diagrams: 09/08/19 13:17 09/08/19 13:17 Laboratory results interpreted by me: 09/08/19 09/08/19 13:17 13:17 MCH 26.4 L Carbon Dioxide 31 H Glucose 120 H Discharge - Discharge Clinical Impression: Nausea vomiting and diarrhea, Elevated blood pressure reading Condition: Good Disposition: HOME, SELF-CARE Instructions: Antinausea Medication ([facility]), Diarrhea, Nonspecific ([facility]), Intravenous (IV) Fluids ([facility]) Additional Instructions: Your symptoms are likely due to a viral illness and should resolve in the next several days. You can take [id number] loperamide also known as Imodium as needed for diarrhea per box instructions. Continue to stay hydrated with plenty of solution such as Gatorade or Pedialyte. You are being prescribed Zofran to take as needed for nausea and vomiting. Please return if you develop severe abdominal pain, pass out, become unable to tolerate any oral fluids for 12 more hours, or any other symptoms that are concerning to you. Regarding Blood Pressure: Your blood pressure was noted to be greater than 120/80 at least once in the emergency room today. It is recommended that you follow-up with her primary care physician in the next week for repeat blood pressure check. The Centers for Medicare and Medicaid Services has specific recommendations regarding a person's blood pressure. There are several lifestyle modifications that are recommended in order to help lower your blood pressure. These include: Quitting smoking if you smoke. Reducing the amount of sodium in your diet. Getting regular exercise Limiting alcohol to no more than 2 drinks a day for men and one drink a day for women. Eating a healthy diet, including more fruits and vegetables, low fat dairy products, less saturated and total fat. Losing weight if you are overweight. FOLLOW-UP: Call your doctor's office and let them know your blood pressure was elevated and you were advised to get your blood pressure checked in the above time-line. If you are unable to get into your doctor's office in this time period, you can follow-up with a new physician (I have left the numbers below for a few primary care doctors affiliated with this [facility]) or return to the ER. PRIMARY CARE PHYSICIANS: Dr. Myron Chaudhary [address], [place] [address] [phone] Dr Smith Address: [address] , [place] [address] Dr Hightower Address: [address] , [place] [address] Follow up with your [id number] hours for further care or return to the ED IMMEDIATELY if symptoms worsen or you have any concerns. If you cannot afford to follow up with your primary care physician a list of low cost clinics have been provided at the end of your discharge papers as well. Most prescribed medications have multiple side effects. The safest thing to do is when filling your prescription speak to your pharmacist regarding possible interactions with your normal home medications and over the counter medications such as Ibuprofen, Tylenol, Benadryl. If you experience any symptoms that cause you discomfort or concern you should discontinue the medication immediately and return to the emergency room or call your primary care physician. Prescriptions: Famotidine [Pepcid 40 mg Tablet] 40 mg PO DAILY 10 Days #10 tablet Ondansetron [Zofran Odt 4 mg Tablet] 1 - 2 tab PO Q4H PRN #15 tab.rapdis PRN Reason: For Nausea/Vomiting Forms: Elevated Blood Pressure, Smoking Cessation Education, Return to Work
[2019-09-08 13:50] LABS: ALBUMIN 4.2 g/dL (3.5-5.0); ALKALINE PHOSPHATASE 112 U/L (38-126); ANION GAP 6 (5-19); ASPARTATE AMINO TRANSFERASE 32 U/L (17-59); BILIRUBIN,DIRECT 0.1 mg/dL (0.0-0.4); BILIRUBIN,TOTAL 0.3 mg/dL (0.2-1.3); BLOOD UREA NITROGEN 11 mg/dL (7-20); CALCIUM 9.3 mg/dL (8.4-10.2); CARBON DIOXIDE 31 mmol/L (22-30); CHLORIDE 105 mmol/L (98-107); GLUCOSE 120 mg/dL (75-110); POTASSIUM 4.1 mmol/L (3.6-5.0); TOTAL PROTEIN 7.7 g/dL (6.3-8.2)
[2019-09-08] MEDS ORDERED: ONDANSETRON ODT 4 MG TAB (6 TAB/ER DISP) PO PRN (14:19)
[2019-09-08 15:05] VITALS: BP 151/90
== END 2019-09-08 14:36 | disposition home or self-care (01) ==
LOC: ER 12:43
DX: R11.2 Nausea with vomiting, unspecified (principal); R19.7 Diarrhea, unspecified; R03.0 Elevated blood-pressure reading, without diagnosis of hypertension; R10.32 Left lower quadrant pain; M54.9 Dorsalgia, unspecified; J45.909 Unspecified asthma, uncomplicated; F17.210 Nicotine dependence, cigarettes, uncomplicated
CPT/HCPCS: 36415; 83690; 85025; 80053; J2405; J7030; S0028; 96361; 96374; 96375; 99284

== ENCOUNTER 2019-10-28 14:56 | Emergency (ER) | payer SELFPAY ==
[2019-10-28] MEDS ORDERED: PREDNISONE 20 MG TABLET PO ONE (15:13)
[2019-10-28] MEDS ORDERED: IPRATROPIUM/ALBUTEROL 0.5-2.5 MG/3 ML AMPUL NEB ONE (15:13)
--- NOTE | 2019-10-28 15:13 | ER Document Report ---
ED Respiratory Problem - General Chief Complaint: Asthma Exacerbation Stated Complaint: COUGH,CONGESTION/NEEDS MED REFILL Time Seen by Provider: 10/28/19 15:08 Primary Care Provider: Betty Basilio [Outside] - Follow up in 1 week TRAVEL OUTSIDE OF THE [place] IN LAST 30 DAYS: No - HPI Notes: 24-year-old male to the emergency department with history of asthma with complaints of an asthma exasperations since yesterday. He states that he was visiting his mother in [place] when he began to have an asthma attack. He states that with his asthma attacks he usually gets cough and feels like his chest is tight and congested. He states he went to the ER done in [place] last night and was given a couple breathing treatments and 1 dose of steroids. He states that today he continues to feel short of breath and like his asthma is not well controlled. He states that he usually gets a steroid Dosepak to go when his asthma is giving him trouble and he is did not get a prescription last night in [place]. He states that he is here to have his asthma treated and to get steroids. He states that he does not have any more albuterol nebulizer solution for home use. He was last hospitalized for his asthma 6 months ago. He has never been intubated for his asthma. He does not smoke. - Related Data Allergies/Adverse Reactions: Penicillins Allergy (Verified 10/28/19 15:09) Past Medical History - General Information source: Patient - Social History Smoking Status: Never Smoker Chew tobacco use (# tins/day): No Frequency of alcohol use: None Drug Abuse: None Lives with: Family Family History: Reviewed & Not Pertinent, Hypertension Patient has suicidal ideation: No Patient has homicidal ideation: No Pulmonary Medical History: Reports: Hx Asthma - as child, none now Renal/ Medical History: Denies: Hx Peritoneal Dialysis - Immunizations Hx Diphtheria, Pertussis, Tetanus Vaccination: Yes Review of Systems - Review of Systems Constitutional: denies: Chills, Fever EENT: denies: Ear pain Cardiovascular: denies: Chest pain, Palpitations, Heart racing, Syncope, Dizziness, Lightheaded Respiratory: Cough, Short of breath, Wheezing Gastrointestinal: denies: Abdominal pain, Diarrhea, Nausea, Vomiting Genitourinary: No symptoms reported Male Genitourinary: No symptoms reported Musculoskeletal: No symptoms reported Skin: No symptoms reported Hematologic/Lymphatic: No symptoms reported Neurological/Psychological: No symptoms reported -: Yes All other systems reviewed and negative Physical Exam - Vital signs Vitals: Temp Pulse Resp BP Pulse Ox 98.6 F 78 18 156/89 H 99 10/28/19 15:07 10/28/19 15:07 10/28/19 15:07 10/28/19 15:07 10/28/19 15:07 Interpretation: Hypertensive - General General appearance: Appears well, Alert In distress: None Notes: Ambulates into triage with no difficulty - HEENT Head: Normocephalic, Atraumatic Eyes: Normal Pupils: PERRL - Respiratory Respiratory status: No respiratory distress. No: Retractions, Tachypnea, Tripod position Chest status: Nontender Breath sounds: Decreased air movement - Decreased air movement throughout but no active wheezing. Patient does state that he recently took his albuterol inhaler pump.. No: Nonproductive cough, Productive cough, Rales, Rhonchi, Stridor, Wheezing Chest palpation: Normal - Cardiovascular Rhythm: Regular Heart sounds: Normal auscultation Murmur: No - Abdominal Inspection: Normal Distension: No distension Bowel sounds: Normal Tenderness: Nontender. 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 No: Pronator drift Sensory: Normal - Psychological Associated symptoms: Normal affect, Normal mood - Skin Skin Temperature: Warm Skin Moisture: Dry Skin Color: Normal Course - Re-evaluation Re-evalutation: 10/28/19 15:21 Patient to the emergency department with persistent asthma exasperations since yesterday. He was seen in another ER and in [place] and given breathing treatments and a one-time dose of steroids. He is not exactly sure what kind of steroid he got. He states that he did not get any to go home with and he feels like he needs more of a taper than just a one-time dose. He states he is continued to wheeze and have shortness of breath today. States he typically coughs with his asthma. He denies any other upper respiratory symptoms such as fever, sore throat, ear pain. Will give breathing treatment and prednisone and reevaluate. 10/28/19 Patient has improved after breathing treatment. He states he feels like he can get a much better breath. Re-auscultation shows better air movement again with no wheezing. Will discharge home with albuterol solution and steroid Dosepak. Patient agrees with the plan. Impression: Acute asthma exacerbation. We will follow the treatment plan as outlined above. Have encouraged patient to return if any worsening symptoms such as worsening shortness of breath, chest pain, passing out or any other concerns. Patient agrees with plan. - Vital Signs Vital signs: Temp Pulse Resp BP Pulse Ox 98.0 F 79 18 155/97 H 98 10/28/19 15:52 10/28/19 15:52 10/28/19 15:52 10/28/19 15:52 10/28/19 15:52 Discharge - Discharge Clinical Impression: Asthma Qualifiers: Asthma severity: mild Asthma persistence: persistent Asthma complication type: with acute exacerbation Qualified Code(s): J45.31 - Mild persistent asthma with (acute) exacerbation Condition: Stable Disposition: HOME, SELF-CARE Instructions: Asthma ([facility]) Additional Instructions: TAKE MEDICINES PRESCRIBED. RETURN IF WORSE. PUSH FLUIDS. RETURN IF WORSE. Prescriptions: Prednisone [Deltasone 10 mg Tablet] 10 mg PO ASDIR PRN #21 tablet PRN Reason: Albuterol Sulfate [Ventolin 0.083% Neb 2.5 mg/3 mL Ampul] 1 vial NEB Q4 #100 vial Forms: Return to Work Referrals: [facility] [Outside] - Follow up in 1 week
[2019-10-28 15:54] VITALS: BP 155/97
== END 2019-10-28 16:32 | disposition home or self-care (01) ==
LOC: ER 14:56
DX: Z76.0 Encounter for issue of repeat prescription (principal); J45.31 Mild persistent asthma with (acute) exacerbation; R05 Cough; R09.81 Nasal congestion; R09.89 Other specified symptoms and signs involving the circulatory and respiratory systems
CPT/HCPCS: 94640; 99284; J7512; J7620

== ENCOUNTER 2019-11-10 13:27 | Emergency (ER) | payer SELFPAY ==
[2019-11-10] MEDS ORDERED: ONDANSETRON 4 MG TAB.RAPDIS PO ONE (14:35)
--- NOTE | 2019-11-10 14:39 | ER Document Report ---
HPI - HPI Time Seen by Provider: 11/10/19 14:32 Notes: Patient is a 24-year-old male w. h/o asthma who presents to the ED complaining of nasal congestion/discharge, dry nonproductive cough, fever, body ache 4 days. Patient states that he is still eating and drinking without difficulties, but does have a decreased p.o. intake. He is still urinating normally having normal bowel movements. He had 1 episode of n/v recently. Patient has been using some [id number]-[id number] meds for symptoms. He denies any significant past medical history including cardiopulmonary history and immunocompromised conditions otherwise. Denies any current headache, neck pain, sore throat, chest pain, palpitations, syncope, shortness of breath, wheeze, dyspnea, abdominal pain, diarrhea, urinary retention, dysuria, hematuria, or rash. - ROS Systems Reviewed and Negative: Yes All other systems reviewed and negative - REPRODUCTIVE Reproductive: DENIES: : Past Medical History - Social History Smoking Status: Unknown if Ever Smoked Family History: Reviewed & Not Pertinent, Hypertension Pulmonary Medical History: Reports: Hx Asthma - as child, none now Renal/ Medical History: Denies: Hx Peritoneal Dialysis - Immunizations Hx Diphtheria, Pertussis, Tetanus Vaccination: Yes Vertical Provider Document - CONSTITUTIONAL Agree With Documented VS: Yes Notes: PHYSICAL EXAMINATION: GENERAL: Well-appearing, well-nourished and in no acute distress. A&Ox4. Answers questions appropriately. Moves comfortably w/o notable distress HEAD: Atraumatic, normocephalic. EYES: Pupils equal round and reactive to light, extraocular movements intact, sclera anicteric, conjunctiva are normal. ENT: Nares patent and with clear discharge. oropharynx no erythema without exudates. No tonsilar hypertrophy without erythema or exudate. No palatine shift. Uvula midline. No tongue protrusion. No drooling, hoarseness, or airway compromise. Moist mucous membranes. No sinus tenderness. NECK: Normal range of motion, supple without lymphadenopathy. No rigidity/meningismus. LUNGS: Breath sounds clear to auscultation bilaterally and equal. No wheezes ra les or rhonchi. No retractions HEART: Regular rate and rhythm without murmurs, rubs, gallops. ABDOMEN: Soft, nontender, nondistended abdomen. No guarding, no rebound. Normal bowel sounds present. No CVA tenderness bilaterally. NEUROLOGICAL: Normal speech, normal gait. PSYCH: Normal mood, normal affect. SKIN: Warm, Dry, normal turgor, no rashes or lesions noted. - INFECTION CONTROL TRAVEL OUTSIDE OF THE [place] IN LAST 30 DAYS: No Course - Re-evaluation Re-evalutation: 11/10/19 Patient is an afebrile, well-hydrated, 24-year-old female who presents to the ED with acute URI, suspect viral. Vitals are acceptable. PE is otherwise unremarkable. CXR unremarkable. No other labs or imaging warranted at this time based on H&P. Patient has no significant cardiopulmonary or immunocompromised medical conditions. Patient's lungs are clear to auscultation bilaterally without tachycardia, hypoxia, or tachypnea. Patient is tolerating p.o. without any difficulties. Pt outside testing/treatment window for influenza. Low suspicion for any meningitis, sepsis, peritonsillar/pharyngeal abscess, respiratory compromise, severe dehydration, or other emergent systemic condition at this time. Patient is aware this condition can change from initial presentation and he needs to monitor symptoms closely. Conservative measures otherwise for symptoms. Recheck with your PCM in 3-5 days. Return to the ED with any worsening/concerning symptoms otherwise as reviewed in discharge. Patrizia groves is in agreement. - Vital Signs Vital signs: Temp Pulse Resp BP Pulse Ox 98.5 F 83 18 167/90 H 98 11/10/19 14:31 11/10/19 14:31 11/10/19 14:31 11/10/19 14:31 11/10/19 14:31 Discharge - Discharge Clinical Impression: Acute URI Condition: Stable Disposition: HOME, SELF-CARE Instructions: Upper Respiratory Illness ([facility]) Additional Instructions: Maintain adequate fluid intake tylenol/ibuprofen as needed alternating every 3 hours for fever/body ache over the counter cold medication as needed for symptoms Humidified air may help Wash your hands regularly Wear a mask when coughing F/u: with your PCM in 3-5 days for a recheck Return to the ED with any fever, altered mental status/behavior, chest pain, palpitations, syncope, headache, neck pain/stiffness, shortness of breath, chest pains, wheezing, drooling, trouble swallowing/breathing, abdominal pain, n/v/d, rash, or worsening/concerning symptoms otherwise. Prescriptions: Ondansetron [Zofran Odt 4 mg Tablet] 1 - 2 tab PO Q4H PRN #15 tab.rapdis PRN Reason: For Nausea/Vomiting Forms: Elevated Blood Pressure Referrals: [facility] [Provider Group] - Follow up as needed
--- NOTE | 2019-11-10 15:00 | RADIOLOGY REPORT (SQ) ---
EXAM DESCRIPTION: CHEST 2 VIEWS COMPLETED DATE/TIME: 11/10/2019 2:51 pm REASON FOR STUDY: cough COMPARISON: 09/12/2017 EXAM PARAMETERS: NUMBER OF VIEWS: two views TECHNIQUE: Digital Frontal and Lateral radiographic views of the chest acquired. RADIATION DOSE: NA LIMITATIONS: none FINDINGS: LUNGS AND PLEURA: No opacities, masses or pneumothorax. No pleural effusion. MEDIASTINUM AND HILAR STRUCTURES: No masses or contour abnormalities. HEART AND VASCULAR STRUCTURES: Heart normal size. No evidence for failure. BONES: No acute findings. HARDWARE: None in the chest. OTHER: No other significant finding. IMPRESSION: No acute abnormality of the lungs. No focal airspace opacity. TECHNICAL DOCUMENTATION: JOB ID: [id number] [employer]- All Rights Reserved Reading location - IP/workstation name: [email or web address]
[2019-11-10 15:29] VITALS: BP 149/85
== END 2019-11-10 15:32 | disposition home or self-care (01) ==
LOC: ER 13:27
DX: J06.9 Acute upper respiratory infection, unspecified (principal); R09.81 Nasal congestion; R09.89 Other specified symptoms and signs involving the circulatory and respiratory systems; R05 Cough; R50.9 Fever, unspecified; M79.10 Myalgia, unspecified site; J45.909 Unspecified asthma, uncomplicated
CPT/HCPCS: 99283; 71046; S0119

== ENCOUNTER 2019-11-28 07:20 | Emergency (ER) | payer SELFPAY ==
[2019-11-28 08:17] LABS: ABSOLUTE EOSINOPHILS # (AUTO) 0.1 10^3/uL (0.0-0.6); ABSOLUTE LYMPHOCYTES (AUTO) 1.5 10^3/uL (0.5-4.7); ABSOLUTE NEUT (AUTO) 8.5 10^3/uL (1.7-8.2); BASOPHILS % (AUTO) 0.3 % (0-2); EOSINOPHILS % (AUTO) 0.6 % (0-6); HEMOGLOBIN 13.8 g/dL (13.5-17.0); LYMPHOCYTES % (AUTO) 13.7 % (13-45); MEAN CORPUSCULAR HEMOGLOBIN 26.7 pg (27.0-33.4); MEAN CORPUSCULAR HGB CONC 33.6 g/dL (32.0-36.0); MEAN CORPUSCULAR VOLUME 80 fl (80-97); MONOCYTES % (AUTO) 9.2 % (3-13); PLATELET COUNT 244 10^3/uL (150-450); RED BLOOD COUNT 5.15 10^6/uL (4.35-5.55); RED CELL DISTRIBUTION WIDTH 14.1 % (11.5-14.0); SEGMENTED NEUTROPHILS % (AUTO) 76.2 % (42-78); TOTAL CELLS COUNTED % (AUTO) 100 %; WHITE BLOOD COUNT 11.2 10^3/uL (4.0-10.5)
[2019-11-28 08:25] LABS: APPEARANCE,URINE CLEAR; BILIRUBIN,URINE NEGATIVE (NEGATIVE); COLOR,URINE YELLOW; GLUCOSE, URINE NEGATIVE (NEGATIVE); KETONES,URINE NEGATIVE (NEGATIVE); LEUKOCYTE ESTERASE,URINE NEGATIVE (NEGATIVE); NITRITE,URINE NEGATIVE (NEGATIVE); PROTEIN,URINE NEGATIVE (NEGATIVE); URINE SPECIFIC GRAVITY 1.026; UROBILINOGEN,URINE NEGATIVE mg/dL (<2.0)
[2019-11-28 08:39] LABS: ALBUMIN 4.3 g/dL (3.5-5.0); ALKALINE PHOSPHATASE 103 U/L (38-126); ANION GAP 8 (5-19); ASPARTATE AMINO TRANSFERASE 28 U/L (17-59); BILIRUBIN,DIRECT 0.3 mg/dL (0.0-0.4); BILIRUBIN,TOTAL 0.9 mg/dL (0.2-1.3); BLOOD UREA NITROGEN 12 mg/dL (7-20); CALCIUM 9.3 mg/dL (8.4-10.2); CARBON DIOXIDE 30 mmol/L (22-30); CHLORIDE 101 mmol/L (98-107); CREATINE KINASE 179 U/L (55-170); GLUCOSE 101 mg/dL (75-110); POTASSIUM 4.3 mmol/L (3.6-5.0); TOTAL PROTEIN 7.9 g/dL (6.3-8.2)
[2019-11-28 08:46] LABS: URINE AMPHETAMINES SCREEN NEGATIVE; URINE BARBITURATES SCREEN NEGATIVE; URINE BENZODIAZEPINES SCREEN NEGATIVE; URINE COCAINE SCREEN NEGATIVE; URINE MARIJUANA (THC) SCREEN NEGATIVE; URINE METHADONE SCREEN NEGATIVE; URINE PHENCYCLIDINE SCREEN NEGATIVE
[2019-11-28 08:55] LABS: CREATINE KINASE MB 1.31 ng/mL (<4.55)
[2019-11-28 08:57] LABS: TROPONIN I < 0.012 ng/mL
--- NOTE | 2019-11-28 09:33 | RADIOLOGY REPORT (SQ) ---
EXAM DESCRIPTION: CHEST 2 VIEWS COMPLETED DATE/TIME: 11/28/2019 9:21 am REASON FOR STUDY: cp COMPARISON: PA and lateral views of the chest from 11/10/2019. EXAM PARAMETERS: NUMBER OF VIEWS: two views TECHNIQUE: PA and lateral views of the chest were obtained. RADIATION DOSE: NA LIMITATIONS: none FINDINGS: LUNGS AND PLEURA: No consolidation, pleural effusion or pneumothorax. MEDIASTINUM AND HILAR STRUCTURES: No mediastinal or hilar contour abnormality. HEART AND VASCULAR STRUCTURES: The cardiac silhouette and pulmonary vasculature are within normal martin its. BONES: No acute findings. HARDWARE: None in the chest. OTHER: No other finding. IMPRESSION: No acute cardiopulmonary process. TECHNICAL DOCUMENTATION: JOB ID: [id number] [employer]- All Rights Reserved Reading location - IP/workstation name: [email or web address]
[2019-11-28] MEDS ORDERED: IBUPROFEN 800 MG TABLET PO ONE (10:18)
--- NOTE | 2019-11-28 10:18 | ER Document Report ---
ED General - General Chief Complaint: Chest Pain Stated Complaint: CHEST PAIN Time Seen by Provider: 11/28/19 09:01 Mode of Arrival: Medic Information source: Patient Notes: 24-year-old male presents emergency department via EMS with complaints of sore throat right hip pain headache cough chest congestion runny nose and chest pain. Denies history of cardiac disease. Reports symptoms started yesterday. Patient also reports he has a history of high blood pressure but is never been diagnosed with high blood pressure he is never taken medications. Patient reports his hip to started hurting yesterday denies trauma. Denies fever vomiting diarrhea. Reports family history of high blood pressure TRAVEL OUTSIDE OF THE [place] IN LAST 30 DAYS: No - HPI Onset: Yesterday Onset/Duration: Sudden Associated symptoms: Chest pain, Headache, Nausea, Sore throat Exacerbated by: Denies Relieved by: Denies Similar symptoms previously: No Recently seen / treated by doctor: No - Related Data Allergies/Adverse Reactions: Penicillins Allergy (Verified 11/28/19 07:57) Past Medical History - General Information source: Patient - Social History Smoking Status: Never Smoker Frequency of alcohol use: None Drug Abuse: None Occupation: [employer] with: Family Family History: Reviewed & Not Pertinent, Hypertension Patient has suicidal ideation: No Patient has homicidal ideation: No - Past Medical History Cardiac Medical History: Reports: Hx Hypertension Pulmonary Medical History: Reports: Hx Asthma Renal/ Medical History: Denies: Hx Peritoneal Dialysis Surgical Hx: Negative - Immunizations Hx Diphtheria, Pertussis, Tetanus Vaccination: Yes Review of Systems - Review of Systems Notes: Review HPI for review of systems., All other systems negative Physical Exam - Vital signs Vitals: Resp Pulse Ox 15 100 11/28/19 07:45 11/28/19 07:45 - Notes Notes: PHYSICAL EXAMINATION: GENERAL: Well-appearing and in no acute distress HEAD: Atraumatic, normocephalic. EYES: Pupils equal round and reactive to light, extraocular movements intact, sclera anicteric, conjunctiva are normal. ENT: nares patent, oropharynx erythema, tonsillar hypertrophy, good airway, clear voice, opens mouth wide, no exudates. Moist mucous membranes. NECK: Normal range of motion, supple without lymphadenopathy LUNGS: CTAB and equal. No wheezes rales or rhonchi. HEART: Regular rate and rhythm without murmurs ABDOMEN: Soft, no tenderness. No guarding, no rebound BACK: Denies back pain denies flank pain EXTREMITIES: Normal range of motion, no pitting edema. No cyanosis. , Complains of right hip pain no obvious deformity no swelling good range of motion NEUROLOGICAL: Cranial nerves grossly intact. . PSYCH: Normal mood, normal affect. SKIN: Warm, Dry, normal turgor, no rashes or lesions noted Course - Re-evaluation Re-evalutation: 11/28/19 10:09 Laboratory 11/28/19 11/28/19 11/28/19 07:45 07:45 07:45 WBC 11.2 H RBC 5.15 Hgb 13.8 Hct 41.0 MCV 80 MCH 26.7 L MCHC 33.6 RDW 14.1 H Plt Count 244 Lymph % (Auto) 13.7 [place] % (Auto) 9.2 Eos % (Auto) 0.6 Baso % (Auto) 0.3 Absolute Neuts (auto) 8.5 H Absolute Lymphs (auto) 1.5 Absolute Monos (auto) 1.0 Absolute Eos (auto) 0.1 Absolute Basos (auto) 0.0 Seg Neutrophils % 76.2 Sodium 139.3 Potassium 4.3 Chloride 101 Carbon Dioxide 30 Anion Gap 8 BUN 12 Creatinine 1.09 Est GFR ( Amer) > 60 Est GFR (MDRD) Non-Af > 60 Glucose 101 Calcium 9.3 Total Bilirubin 0.9 Direct Bilirubin 0.3 Neonat Total Bilirubin Not Reportable Neonat Direct Bilirubin Not Reportable Neonat Indirect Bili Not Reportable AST 28 ALT 33 Alkaline Phosphatase 103 Creatine Kinase 179 H CK-MB (CK-2) 1.31 Troponin I < 0.012 Total Protein 7.9 Albumin 4.3 Urine Color Urine Appearance Urine pH Ur Specific [place] Urine Protein Urine Glucose (UA) Urine Ketones Urine Blood Urine Nitrite Urine Bilirubin Urine Urobilinogen Ur Leukocyte Esterase Urine WBC (Auto) Urine RBC (Auto) Urine Mucus (Auto) Urine Ascorbic Acid Urine Opiates Screen Urine Methadone Screen Ur Barbiturates Screen Ur Phencyclidine Scrn Ur Amphetamines Screen U Benzodiazepines Scrn Urine Cocaine Screen U Marijuana (THC) Screen 11/28/19 11/28/19 07:45 07:45 WBC RBC Hgb Hct MCV MCH MCHC RDW Plt Count Lymph % (Auto) [place] % (Auto) Eos % (Auto) Baso % (Auto) Absolute Neuts (auto) Absolute Lymphs (auto) Absolute Monos (auto) Absolute Eos (auto) Absolute Basos (auto) Seg Neutrophils % Sodium Potassium Chloride Carbon Dioxide Anion Gap BUN Creatinine Est GFR ( Amer) Est GFR (MDRD) Non-Af Glucose Calcium Total Bilirubin Direct Bilirubin Neonat Total Bilirubin Neonat Direct Bilirubin Neonat Indirect Bili AST ALT Alkaline Phosphatase Creatine Kinase CK-MB (CK-2) Troponin I Total Protein Albumin Urine Color YELLOW Urine Appearance CLEAR Urine pH 6.0 Ur Specific [place] 1.026 Urine Protein NEGATIVE Urine Glucose (UA) NEGATIVE Urine Ketones NEGATIVE Urine Blood NEGATIVE Urine Nitrite NEGATIVE Urine Bilirubin NEGATIVE Urine Urobilinogen NEGATIVE Ur Leukocyte Esterase NEGATIVE Urine WBC (Auto) 1 Urine RBC (Auto) 0 Urine Mucus (Auto) OCC Urine Ascorbic Acid NEGATIVE Urine Opiates Screen NEGATIVE Urine Methadone Screen NEGATIVE Ur Barbiturates Screen NEGATIVE Ur Phencyclidine Scrn NEGATIVE Ur Amphetamines Screen NEGATIVE U Benzodiazepines Scrn NEGATIVE Urine Cocaine Screen NEGATIVE U Marijuana (THC) Screen NEGATIVE Chest X-Ray 11/28/19 09:04 IMPRESSION: No acute cardiopulmonary process. 11/28/19 11:49 Laboratory 11/28/19 11/28/19 11/28/19 07:45 07:45 07:45 WBC 11.2 H RBC 5.15 Hgb 13.8 Hct 41.0 MCV 80 MCH 26.7 L MCHC 33.6 RDW 14.1 H Plt Count 244 Lymph % (Auto) 13.7 [place] % (Auto) 9.2 Eos % (Auto) 0.6 Baso % (Auto) 0.3 Absolute Neuts (auto) 8.5 H Absolute Lymphs (auto) 1.5 Absolute Monos (auto) 1.0 Absolute Eos (auto) 0.1 Absolute Basos (auto) 0.0 Seg Neutrophils % 76.2 Sodium 139.3 Potassium 4.3 Chloride 101 Carbon Dioxide 30 Anion Gap 8 BUN 12 Creatinine 1.09 Est GFR ( Amer) > 60 Est GFR (MDRD) Non-Af > 60 Glucose 101 Calcium 9.3 Total Bilirubin 0.9 Direct Bilirubin 0.3 Neonat Total Bilirubin Not Reportable Neonat Direct Bilirubin Not Reportable Neonat Indirect Bili Not Reportable AST 28 ALT 33 Alkaline Phosphatase 103 Creatine Kinase 179 H CK-MB (CK-2) 1.31 Troponin I < 0.012 Total Protein 7.9 Albumin 4.3 Urine Color Urine Appearance Urine pH Ur Specific [place] Urine Protein Urine Glucose (UA) Urine Ketones Urine Blood Urine Nitrite Urine Bilirubin Urine Urobilinogen Ur Leukocyte Esterase Urine WBC (Auto) Urine RBC (Auto) Urine Mucus (Auto) Urine Ascorbic Acid Urine Opiates Screen Urine Methadone Screen Ur Barbiturates Screen Ur Phencyclidine Scrn Ur Amphetamines Screen U Benzodiazepines Scrn Urine Cocaine Screen U Marijuana (THC) Screen Influenza A (Rapid) Influenza B (Rapid) Group A Strep Rapid 11/28/19 11/28/19 11/28/19 07:45 07:45 10:36 WBC RBC Hgb Hct MCV MCH MCHC RDW Plt Count Lymph % (Auto) [place] % (Auto) Eos % (Auto) Baso % (Auto) Absolute Neuts (auto) Absolute Lymphs (auto) Absolute Monos (auto) Absolute Eos (auto) Absolute Basos (auto) Seg Neutrophils % Sodium Potassium Chloride Carbon Dioxide Anion Gap BUN Creatinine Est GFR ( Amer) Est GFR (MDRD) Non-Af Glucose Calcium Total Bilirubin Direct Bilirubin Neonat Total Bilirubin Neonat Direct Bilirubin Neonat Indirect Bili AST ALT Alkaline Phosphatase Creatine Kinase CK-MB (CK-2) Troponin I Total Protein Albumin Urine Color YELLOW Urine Appearance CLEAR Urine pH 6.0 Ur Specific [place] 1.026 Urine Protein NEGATIVE Urine Glucose (UA) NEGATIVE Urine Ketones NEGATIVE Urine Blood NEGATIVE Urine Nitrite NEGATIVE Urine Bilirubin NEGATIVE Urine Urobilinogen NEGATIVE Ur Leukocyte Esterase NEGATIVE Urine WBC (Auto) 1 Urine RBC (Auto) 0 Urine Mucus (Auto) OCC Urine Ascorbic Acid NEGATIVE Urine Opiates Screen NEGATIVE Urine Methadone Screen NEGATIVE Ur Barbiturates Screen NEGATIVE Ur Phencyclidine Scrn NEGATIVE Ur Amphetamines Screen NEGATIVE U Benzodiazepines Scrn NEGATIVE Urine Cocaine Screen NEGATIVE U Marijuana (THC) Screen NEGATIVE Influenza A (Rapid) NEGATIVE Influenza B (Rapid) NEGATIVE Group A Strep Rapid 11/28/19 10:36 WBC RBC Hgb Hct MCV MCH MCHC RDW Plt Count Lymph % (Auto) [place] % (Auto) Eos % (Auto) Baso % (Auto) Absolute Neuts (auto) Absolute Lymphs (auto) Absolute Monos (auto) Absolute Eos (auto) Absolute Basos (auto) Seg Neutrophils % Sodium Potassium Chloride Carbon Dioxide Anion Gap BUN Creatinine Est GFR ( Amer) Est GFR (MDRD) Non-Af Glucose Calcium Total Bilirubin Direct Bilirubin Neonat Total Bilirubin Neonat Direct Bilirubin Neonat Indirect Bili AST ALT Alkaline Phosphatase Creatine Kinase CK-MB (CK-2) Troponin I Total Protein Albumin Urine Color Urine Appearance Urine pH Ur Specific [place] Urine Protein Urine Glucose (UA) Urine Ketones Urine Blood Urine Nitrite Urine Bilirubin Urine Urobilinogen Ur Leukocyte Esterase Urine WBC (Auto) Urine RBC (Auto) Urine Mucus (Auto) Urine Ascorbic Acid Urine Opiates Screen Urine Methadone Screen Ur Barbiturates Screen Ur Phencyclidine Scrn Ur Amphetamines Screen U Benzodiazepines Scrn Urine Cocaine Screen U Marijuana (THC) Screen Influenza A (Rapid) Influenza B (Rapid) Group A Strep Rapid POSITIVE 11/28/19 19:22 Patient looks good nontoxic. Talking without problems good clear voice. No complaints of vomiting or diarrhea. Family at the bedside. Labs unremarkable EKG negative for acute AR. Troponin negative. Chest x-ray negative. patient positive for group A strep. Patient is allergic to penicillin treated with prescription for Zithromax. Patient and family were given a copy of all labs and x-ray report. They were instructed on the importance of follow-up with a primary care provider for evaluation and treatment of his blood pressure. Chest X-Ray 11/28/19 09:04 IMPRESSION: No acute cardiopulmonary process. 11/28/19 19:30 - Vital Signs Vital signs: Temp Pulse Resp BP Pulse Ox 99.6 F 16 140/78 H 97 11/28/19 12:01 11/28/19 12:01 11/28/19 12:01 11/28/19 12:01 - Laboratory Result Diagrams: 11/28/19 07:45 11/28/19 07:45 Laboratory results interpreted by me: 11/28/19 11/28/19 07:45 07:45 WBC 11.2 H MCH 26.7 L RDW 14.1 H Absolute Neuts (auto) 8.5 H Creatine Kinase 179 H - Diagnostic Test Radiology reviewed: Image reviewed, Reports reviewed - EKG Interpretation by Me Rate: Tachycardia Rhythm: NSR Additional EKG results interpreted by me: 11/28/19 19:[address] elevation no T wave inversion Discharge - Discharge Clinical Impression: Strep sore throat Chest pain Qualifiers: Chest pain type: unspecified Qualified Code(s): R07.9 - Chest pain, unspecified Hip pain Qualifiers: Laterality: right Qualified Code(s): M25.551 - Pain in right hip Condition: Stable Disposition: HOME, SELF-CARE Instructions: Azithromycin ([facility]), Chest Pain of Unclear Cause ([facility]), High Blood Pressure ([facility]), Use of [id number] Ibuprofen ([facility]), Strep Throat ([facility]) Additional Instructions: *You have been evaluated for a sore throat, strep throat, hip pain *Take medication as prescribed *Gargle with Warm salt and throat lozenges for comfort *Change toothbrush after two days of antibiotics *Do not let anyone drink/eat after you *Good hand washing *Follow-up with a primary care provider within one week for recheck and to di scuss high blood pressure *Return to ED for worsening condition change, needs Monitor your blood pressure. Your blood pressure was elevated today. This may be because you were anxious, in pain or because you need medication. It is important to follow up with your primary care provider for full evaluation. Prescriptions: Azithromycin [Zithromax 250 mg Tablet] 250 mg PO ASDIR PRN #6 tablet PRN Reason: Forms: Elevated Blood Pressure, Return to Work
[2019-11-28 11:17] LABS: A TYPE INFLUENZA AG NEGATIVE (NEGATIVE); B INFLUENZA AG NEGATIVE (NEGATIVE)
--- NOTE | 2019-11-28 11:36 | EKG REPORT ---
SEVERITY:- ABNORMAL ECG - SINUS TACHYCARDIA CONSIDER LEFT VENTRICULAR HYPERTROPHY : Confirmed by: Sherrie Rodriguez MD 28-Nov-2019 11:36:11
[2019-11-28 12:16] VITALS: BP 140/78
== END 2019-11-28 12:16 | disposition home or self-care (01) ==
LOC: ER 07:20
DX: J02.0 Streptococcal pharyngitis (principal); R07.9 Chest pain, unspecified; R51 Headache; R05 Cough; M25.551 Pain in right hip; I10 Essential (primary) hypertension; Z88.0 Allergy status to penicillin
CPT/HCPCS: 36415; 71046; 80053; 80307; 81001; 82550; 82553; 84484; 85025; 87804; 87880; 93005; 93010; 99285

== ENCOUNTER 2020-02-13 20:19 | Emergency (ER) | payer SELFPAY ==
[2020-02-13 21:28] LABS: ABSOLUTE LYMPHOCYTES (AUTO) 1.4 10^3/uL (0.5-4.7); ABSOLUTE MONOCYTES (AUTO) 1.6 10^3/uL (0.1-1.4); ABSOLUTE NEUT (AUTO) 10.3 10^3/uL (1.7-8.2); BASOPHILS % (AUTO) 0.2 % (0-2); HEMOGLOBIN 12.7 g/dL (13.5-17.0); LYMPHOCYTES % (AUTO) 10.6 % (13-45); MEAN CORPUSCULAR HEMOGLOBIN 26.8 pg (27.0-33.4); MEAN CORPUSCULAR HGB CONC 34.3 g/dL (32.0-36.0); MEAN CORPUSCULAR VOLUME 78 fl (80-97); MONOCYTES % (AUTO) 11.7 % (3-13); PLATELET COUNT 204 10^3/uL (150-450); RED BLOOD COUNT 4.73 10^6/uL (4.35-5.55); RED CELL DISTRIBUTION WIDTH 14.1 % (11.5-14.0); SEGMENTED NEUTROPHILS % (AUTO) 77.5 % (42-78); TOTAL CELLS COUNTED % (AUTO) 100 %; WHITE BLOOD COUNT 13.3 10^3/uL (4.0-10.5)
[2020-02-13 21:36] LABS: ALBUMIN 3.9 g/dL (3.5-5.0); ALKALINE PHOSPHATASE 127 U/L (38-126); ANION GAP 12 (5-19); ASPARTATE AMINO TRANSFERASE 34 U/L (17-59); BILIRUBIN,DIRECT 0.5 mg/dL (0.0-0.4); BILIRUBIN,TOTAL 1.1 mg/dL (0.2-1.3); BLOOD UREA NITROGEN 14 mg/dL (7-20); CALCIUM 9.1 mg/dL (8.4-10.2); CARBON DIOXIDE 24 mmol/L (22-30); CHLORIDE 101 mmol/L (98-107); GLUCOSE 130 mg/dL (75-110); POTASSIUM 3.9 mmol/L (3.6-5.0); TOTAL PROTEIN 7.7 g/dL (6.3-8.2)
[2020-02-13] MEDS ORDERED: ACETAMINOPHEN 325 MG TABLET PO ONE (21:38)
[2020-02-13] MEDS ORDERED: KETOROLAC TROMETHAMINE INJ/PF 30 MG/1 ML SDV IV ONE (21:39)
[2020-02-13] MEDS ORDERED: ERYTHROMYCIN 0.5% OPH OINT 1 GM UNIT DOSE OD ONE (21:43)
--- NOTE | 2020-02-13 21:44 | ER Document Report ---
ED General - General Chief Complaint: Pain All Over Stated Complaint: CHEST PAIN/FEVER Time Seen by Provider: 02/13/20 21:28 Primary Care Provider: [facility] [Provider Group] - Follow up as needed [facility] [Provider Group] - Follow up as needed [facility] [Provider Group] - Follow up as needed [facility] [Provider Group] - Follow up as needed Mode of Arrival: Wheelchair Information source: Patient Notes: 24-year-old male presented to ED for cough cold congestion body aches fever 103. He was evaluated in the covid 19 pandemic. This was suspected during his initial evaluation. Testing was negative for flu strep chest x-ray was clear his evaluation is consistent with a virus. He is alert oriented respirations regular nonlabored speaking in full sentences. TRAVEL OUTSIDE OF THE [place] IN LAST 30 DAYS: No - HPI Onset: Yesterday Onset/Duration: Gradual Quality of pain: Achy Severity: Moderate Associated symptoms: Body/muscle aches, Nonproductive cough, Rhinnorhea, Sinus pain/drainage, Sore throat Exacerbated by: Movement Relieved by: Denies Similar symptoms previously: No Recently seen / treated by doctor: No - Related Data Allergies/Adverse Reactions: Penicillins Allergy (Verified 11/28/19 07:57) Past Medical History - General Information source: Patient - Social History Smoking Status: Current Every Day Smoker Cigarette use (# per day): Yes - 1/2 pack/day Smoking Education Provided: Yes - 4 minutes Frequency of alcohol use: None Drug Abuse: None Lives with: Family Family History: Reviewed & Not Pertinent, Hypertension Patient has suicidal ideation: No Patient has homicidal ideation: No - Past Medical History Cardiac Medical History: Reports: Hx Hypertension Pulmonary Medical History: Reports: Hx Asthma EENT Medical History: Reports: None Neurological Medical History: Reports: None Endocrine Medical History: Reports: None Renal/ Medical History: Reports: None Malignancy Medical History: Reports None GI Medical History: Reports: None Musculoskeletal Medical History: Reports None Skin Medical History: Reports None Psychiatric Medical History: Reports: None Traumatic Medical History: Reports: None Infectious Medical History: Reports: None Surgical Hx: Negative Past Surgical History: Reports: None - Immunizations Immunizations up to date: Yes Hx Diphtheria, Pertussis, Tetanus Vaccination: Yes Review of Systems - Review of Systems Constitutional: Chills, Fever, Recent illness EENT: Eye discharge, Nose discharge, Sinus discharge Cardiovascular: Chest pain Respiratory: Cough, Short of breath Gastrointestinal: No symptoms reported Genitourinary: No symptoms reported Male Genitourinary: No symptoms reported Musculoskeletal: Muscle pain - Pain all over, Muscle stiffness Skin: No symptoms reported Hematologic/Lymphatic: No symptoms reported Neurological/Psychological: No symptoms reported -: Yes All other systems reviewed and negative Physical Exam - Vital signs Vitals: Pulse Ox 100 02/13/20 20:19 Interpretation: Hypertensive - 147/88, Tachycardic - 106 when I first saw him, Tachypneic - 22 when I first saw him, Febrile - 103.0 initial exam - General General appearance: Appears well, Alert - HEENT Head: Normocephalic, Atraumatic Eyes: Normal Conjunctiva: Purulent discharge - States he has had discharge for several months. No: Injected Cornea: Normal Pupils: PERRL Ears: Normal External canal: Normal Tympanic membrane: Normal Sinus: Normal Nasal: Purulent discharge, Swelling Mouth/Lips: Normal Mucous membranes: Normal Pharynx: Erythema, Post nasal drainage. No: Exudate Neck: Normal - Respiratory Respiratory status: No respiratory distress Chest status: Tender, Pain on movement, Pain with cough Breath sounds: Nonproductive cough Chest palpation: Normal - Cardiovascular Rhythm: Regular Heart sounds: Normal auscultation Murmur: No - Abdominal Inspection: Normal Distension: No distension Bowel sounds: Normal Tenderness: Nontender Organomegaly: No organomegaly - Back Back: Normal, Nontender - Extremities General upper extremity: Normal inspection, Nontender, Normal color, Normal ROM, Normal temperature General lower extremity: Normal inspection, Nontender, Normal color, Normal ROM, Normal temperature, Normal weight bearing. No: Mazin's sign - Neurological Neuro grossly intact: Yes Cognition: Normal Orientation: AAOx4 Pj Coma Scale Eye Opening: Spontaneous [place] Coma Scale Verbal: Oriented [place] Coma Scale Motor: Obeys Commands Pj Coma Scale Total: 15 Speech: Normal Motor strength normal: LUE, RUE, LLE, RLE Sensory: Normal - Psychological Associated symptoms: Normal affect, Normal mood - Skin Skin Temperature: Warm Skin Moisture: Dry Skin Color: Normal Course - Re-evaluation Re-evalutation: 02/14/20 00:26 This patient was evaluated during the [facility] the . And that diagnosis was suspected considered upon their initial presentation. There evaluate mendoza treatment and testing was consistent with current guidelines for the patient who presents with complaint or symptoms that may be related to the Coblator 19. Vital signs, labs, x-ray, and exam were discussed with covering physician Dr. Iverson. Patient will be tested for the covered virus before he is discharged. His flu and strep were negative his chest x-ray was clear. Patient has been informed that he needs to be on 14 days self quarantine. Patient has verbalized understanding and agreement with treatment plan and patient will be discharged home. - Vital Signs Vital signs: Temp Pulse Resp BP Pulse Ox 100.0 F 85 18 133/75 H 100 02/14/20 01:13 02/14/20 01:13 02/14/20 01:13 02/14/20 01:13 02/14/20 01:13 - Laboratory Result Diagrams: 02/13/20 20:17 02/13/20 20:17 Laboratory results interpreted by me: 02/13/20 02/13/20 02/13/20 20:17 20:17 21:32 WBC 13.3 H Hgb 12.7 L Hct 37.0 L MCV 78 L MCH 26.8 L RDW 14.1 H Lymph % (Auto) 10.6 L Absolute Neuts (auto) 10.3 H Absolute Monos (auto) 1.6 H Sodium 136.5 L Glucose 130 H Direct Bilirubin 0.5 H Alkaline Phosphatase 127 H Urine Protein 100 H Urine Ketones TRACE H Urine Bilirubin MODERATE H Urine Urobilinogen 4.0 H Urine Ascorbic Acid 40 H Discharge - Discharge Clinical Impression: Viral respiratory illness Conjunctivitis, right eye Qualifiers: Conjunctivitis type: unspecified Qualified Code(s): H10.9 - Unspecified conjunctivitis Fever Qualifiers: Fever type: unspecified Qualified Code(s): R50.9 - Fever, unspecified Condition: Stable Disposition: HOME, SELF-CARE Additional Instructions: UPPER RESPIRATORY ILLNESS: You have a viral infection of the respiratory passages -- a "cold." This common infection causes nasal congestion, drainage, and often sore throat and cough. It is highly contagious. The disease usually lasts about 10 to 14 days. There is no "cure" for the viral infection -- it must run its course. If there is a complication, such as bacterial infection in the nose, sinuses, middle ear, or bronchial tubes, antibiotics may be required. The antibiotics won't affect the virus. Drink plenty of fluids. A humidifier may help. An expectorant medication or decongestant may make you more comfortable. Use acetaminophen or ibuprofen for fever or aches. See the doctor if fever persists over two days, if there is any significant worsening of your symptoms, or if you simply fail to improve as expected. You have been recommended treatment with Flonase which is [id number] 1 spray each nostril twice a day. You could also use salt soda solution gargles. These will help to remove the drainage from the back your throat. Chloraseptic spray was [id number] that will also help with your sore throat. Salt and soda solution gargle 1 quart of water 1 tablespoon of salt 1 teaspoon of baking soda Mixed 3 ingredients together and boil for 1 minute Placed in a covered quart jar Use 1/2 ounce of cold solution to gargle 3 times a day USE OF ACETAMINOPHEN (Tylenol): Acetaminophen may be taken for pain relief or fever control. It's much safer than aspirin, offering a wider range of "safe" dosages. It is safe during . Some brand names are Tylenol, Panadol, Datril, Anacin 3, Tempra, and Liquiprin. Acetaminophen can be repeated every four hours. The following are maximum recommended dosages: >89 pounds or adults 650 mg to 900 mg Acetaminophen can be repeated every four hours. Maximum dose not to exceed 4000 mg a day. SMOKING: If you smoke, you should stop smoking. The tar and chemicals in cigarette smoke are harmful. Smoking has been shown to cause: emphysema chronic bronchitis lung cancer mouth and throat cancer stomach and pancreas cancer premature aging defects In addition, smoking increases ear and lung infections in children of smokers. FOLLOW-UP CARE: If you have been referred to a physician for follow-up care, call the physician s office for an appointment as you were instructed or within the next two days. If you experience worsening or a significant change in your symptoms, notify the physician immediately or return to the Emergency Department at any time for re- evaluation. You are being tested to the Covid 19 virus. You need to self quarantine for the next 14 days. Someone will contact you with your lab results. They will follow-up this testing. You cannot go out in public while you are on self quarantine. If you have any increase in symptoms increase in fever cough shortness of breath please call your primary doctor to find out what you need to do next. Please do not go out until you have called your doctor to find out your next step. If you do not have a primary doctor call the emergency room any increase in symptoms.. Forms: Elevated Blood Pressure, Smoking Cessation Education, Return to Work Referrals: [facility] [Provider Group] - Follow up as needed [facility] [Provider Group] - Follow up as needed [facility] [Provider Group] - Follow up as needed [facility] [Provider Group] - Follow up as needed
[2020-02-13] MEDS: NORMAL SALINE 1000 ML 1,000 ML IV PRN ×2 (22:19→23:41)
--- NOTE | 2020-02-13 22:20 | RADIOLOGY REPORT (SQ) ---
EXAM DESCRIPTION: XR CHEST 1 VIEW COMPLETED DATE/TME: 02/13/2020 21:43 CLINICAL HISTORY: 24 years Male Fever cough body aches COMPARISON: 11/28/2019. FINDINGS: The cardiomediastinal silhouette appears unremarkable. No consolidating infiltrates or pleural effusions. No pneumothorax. IMPRESSION: No acute abnormality is identified.
[2020-02-13 22:58] LABS: APPEARANCE,URINE SLIGHTLY-CLOUDY; BILIRUBIN,URINE MODERATE (NEGATIVE); COLOR,URINE AMBER; GLUCOSE, URINE NEGATIVE (NEGATIVE); KETONES,URINE TRACE mg/dL (NEGATIVE); PROTEIN,URINE 100 mg/dL (NEGATIVE); URINE SPECIFIC GRAVITY 1.041
[2020-02-13 23:16] LABS: A TYPE INFLUENZA AG NEGATIVE (NEGATIVE); B INFLUENZA AG NEGATIVE (NEGATIVE)
[2020-02-14 01:23] VITALS: BP 133/75
== END 2020-02-14 01:18 | disposition home or self-care (01) ==
LOC: ER 20:19
DX: J98.8 Other specified respiratory disorders (principal); B97.89 Other viral agents as the cause of diseases classified elsewhere; H10.9 Unspecified conjunctivitis; R05 Cough; R07.9 Chest pain, unspecified; R50.9 Fever, unspecified; M79.10 Myalgia, unspecified site; J34.89 Other specified disorders of nose and nasal sinuses; J02.9 Acute pharyngitis, unspecified; I10 Essential (primary) hypertension; J45.909 Unspecified asthma, uncomplicated; R06.02 Shortness of breath; R00.0 Tachycardia, unspecified; R09.82 Postnasal drip; F17.210 Nicotine dependence, cigarettes, uncomplicated; Z71.6 Tobacco abuse counseling; Z20.828 Contact with and (suspected) exposure to other viral communicable diseases
CPT/HCPCS: 99406; 99283; 36415; 87040; 87070; 87880; 83605; 85025; 87635; 80053; 81001; 87804; 71045; J1885; J7030

== ENCOUNTER 2020-02-14 08:24 | Emergency (ER) | payer SELFPAY ==
--- NOTE | 2020-02-14 08:36 | ER Document Report ---
ED General - General Chief Complaint: Fever Stated Complaint: FEVER TRAVEL OUTSIDE OF THE [place] IN LAST 30 DAYS: No - HPI Notes: 24-year-old male presents emergency room for complaints of high fever, vomiting, coughing, body aches for the last day. , Patient was seen in the emergency room last evening for similar symptoms, was negative for rapid strep rapid flu, chest x-ray was unremarkable. He was screened for covid-19, results are still pending. Patient states he has been vomiting so much he noticed some blood in his vomit today and this is what brought him to the emergency room. - Related Data Allergies/Adverse Reactions: Penicillins Allergy (Verified 11/28/19 07:57) Past Medical History - Social History Smoking Status: Unknown if Ever Smoked Family History: Reviewed & Not Pertinent, Hypertension - Past Medical History Cardiac Medical History: Reports: Hx Hypertension Pulmonary Medical History: Reports: Hx Asthma - Immunizations Immunizations up to date: Yes Hx Diphtheria, Pertussis, Tetanus Vaccination: Yes Physical Exam - Vital signs Vitals: Temp Pulse Resp BP Pulse Ox 102.9 F H 107 H 20 151/90 H 96 02/14/20 08:24 02/14/20 08:24 02/14/20 08:24 02/14/20 08:24 02/14/20 08:24 - Notes Notes: Full physical exam could not be performed due to COVID-19 isolation protocols: Constitutional: febrile, otherwise Vital signs are stable, well-appearing in no distress Eyes: Non-icteric, normal EMOI Cardiovascular: No JVD Respiratory: Nonlabored breathing Gastrointestinal: Abdomen not distended, tenderness to right upper quadrant and periumbilical area. no cva tenderness bilaterally on palpation. Musculoskeletal: Moves extremities Neuro: Awake and alert Skin: Normal color Psych: Oriented Course - Re-evaluation Re-evalutation: 02/14/20 10:38 The patient was evaluated during the global COVID-19 pandemic, and that diagnosis was suspected/considered upon their initial presentation. Their evaluation, treatment and testing was consistent with current guidelines for patients who present with complaints or symptoms that may be related to COVID- 19. Patient will be tested for the covid virus before is discharged. flu and strep were negative, CT chest was clear, negative for pneumonia, pneumothorax, tension, etc. CT abd/pelvis unremarkable. discussed with supervising ER physician,Dr. Galen Fernandez MD, who felt that patient likely has covid, but is stable. he needs to quarantine at home, he does not require admission. Advised to take Tylenol [id number] as well as Phenergan suppository. after performing a Medical Screening Examination, I estimate there is LOW risk for RUPTURED ESOPHAGUS, PNEUMOTHORAX, PULMONARY EMBOLISM, ACUTE CORONARY SYNDROME, OR THORACIC AORTIC DISSECTION, acute appendicitis, bowel obstruction, acute cho lecystitis, perforated diverticulitis, incarcerated hernia, pancreatitis, testicular torsion, perforated ulcer, thus I consider the discharge disposition reasonable. I have reevaluated this patient multiple times and no significant life threatening changes are noted. The patient and I have discussed the diagnosis and risks, and we agree with discharging home with close follow-up. We also discussed returning to the Emergency Department immediately if new or worsening symptoms occur. We have discussed the symptoms which are most concerning (e.g., bloody sputum, bloody stool, and retractable vomiting, worsening pain or shortness of breath) that necessitate immediate return. - Vital Signs Vital signs: Temp Pulse Resp BP Pulse Ox 101.9 F H 98 20 151/90 H 98 02/14/20 10:48 02/14/20 10:48 02/14/20 10:48 02/14/20 08:24 02/14/20 10:48 - Laboratory Result Diagrams: 02/14/20 09:30 02/14/20 09:30 Laboratory results interpreted by me: 02/14/20 02/14/20 02/14/20 09:30 09:30 09:30 WBC 13.0 H Hgb 11.6 L Hct 34.9 L MCV 79 L MCH 26.5 L RDW 14.3 H Lymph % (Auto) 10.7 L [place] % (Auto) 13.7 H Absolute Neuts (auto) 9.8 H Absolute Monos (auto) 1.8 H Glucose 121 H Urine Protein 100 H Urine Ketones 20 H Urine Urobilinogen 4.0 H Urine Ascorbic Acid 40 H Discharge - Discharge Clinical Impression: Viral respiratory illness, Fever, Vomiting Condition: Stable Disposition: HOME, SELF-CARE Instructions: Acetaminophen, Antinausea Medication ([facility]), Intravenous (IV) Fluids ([facility]), Viral Syndrome ([facility]), Vomiting ([facility]), Fever ([facility]) Additional Instructions: Your CT abdomen/pelvis and CT chest today were unremarkable. Received a liter of IV fluids and antipyretics. Take Tylenol every 6 hours as directed and use Phenergan suppositories for your vomiting. Please increase oral hydration. Your labs indicated that you have a viral illness. your covid testing is still pending. your flu and strep were negative. There is no source of infection noted. Please stay home for 7 days from onset of sypmtoms. Then stay home for 3 days after your fever has resolved without anti-pyretics. and your respiratory symptoms has improved. wash your hands frequently, social distancing with at least 6 feet, and avoid touching your face. Prescriptions: Acetaminophen [Pain Relief] 975 mg PO Q6HP PRN #20 tablet PRN Reason: Promethazine HCl [Phenergan 25 mg Supp.rect] 1 supp IA Q6H #12 supp.rect Forms: Return to Work Referrals: TRENA GUTIERREZ MD [COMMUNITY BASED STAFF] - Follow up as needed
[2020-02-14] MEDS ORDERED: NORMAL SALINE 1000 ML 1,000 ML IV ONE (08:37)
[2020-02-14] MEDS ORDERED: ACETAMINOPHEN 325 MG TABLET PO ONE (08:40)
[2020-02-14 10:04] LABS: ABSOLUTE LYMPHOCYTES (AUTO) 1.4 10^3/uL (0.5-4.7); ABSOLUTE MONOCYTES (AUTO) 1.8 10^3/uL (0.1-1.4); ABSOLUTE NEUT (AUTO) 9.8 10^3/uL (1.7-8.2); BASOPHILS % (AUTO) 0.3 % (0-2); EOSINOPHILS % (AUTO) 0.1 % (0-6); HEMATOCRIT 34.9 % (37.9-51.0); HEMOGLOBIN 11.6 g/dL (13.5-17.0); LYMPHOCYTES % (AUTO) 10.7 % (13-45); MEAN CORPUSCULAR HEMOGLOBIN 26.5 pg (27.0-33.4); MEAN CORPUSCULAR HGB CONC 33.4 g/dL (32.0-36.0); MEAN CORPUSCULAR VOLUME 79 fl (80-97); MONOCYTES % (AUTO) 13.7 % (3-13); PLATELET COUNT 187 10^3/uL (150-450); RED BLOOD COUNT 4.39 10^6/uL (4.35-5.55); RED CELL DISTRIBUTION WIDTH 14.3 % (11.5-14.0); SEGMENTED NEUTROPHILS % (AUTO) 75.2 % (42-78); TOTAL CELLS COUNTED % (AUTO) 100 %
[2020-02-14 10:08] LABS: A TYPE INFLUENZA AG NEGATIVE (NEGATIVE); B INFLUENZA AG NEGATIVE (NEGATIVE)
[2020-02-14 10:09] LABS: APPEARANCE,URINE SLIGHTLY-CLOUDY; BILIRUBIN,URINE NEGATIVE (NEGATIVE); GLUCOSE, URINE NEGATIVE (NEGATIVE); KETONES,URINE 20 mg/dL (NEGATIVE); LEUKOCYTE ESTERASE,URINE NEGATIVE (NEGATIVE); NITRITE,URINE NEGATIVE (NEGATIVE); PROTEIN,URINE 100 mg/dL (NEGATIVE); URINE SPECIFIC GRAVITY 1.029
[2020-02-14 10:10] LABS: COLOR,URINE YELLOW
[2020-02-14 10:13] LABS: ALBUMIN 3.5 g/dL (3.5-5.0); ALKALINE PHOSPHATASE 113 U/L (38-126); ANION GAP 7 (5-19); ASPARTATE AMINO TRANSFERASE 36 U/L (17-59); BILIRUBIN,DIRECT 0.1 mg/dL (0.0-0.4); BILIRUBIN,TOTAL 0.8 mg/dL (0.2-1.3); BLOOD UREA NITROGEN 15 mg/dL (7-20); CALCIUM 8.7 mg/dL (8.4-10.2); CARBON DIOXIDE 26 mmol/L (22-30); CHLORIDE 104 mmol/L (98-107); GLUCOSE 121 mg/dL (75-110); POTASSIUM 4.1 mmol/L (3.6-5.0); TOTAL PROTEIN 6.9 g/dL (6.3-8.2)
[2020-02-14] MEDS ORDERED: MORPHINE SULFATE 10 MG/ML INJ IV ONE (11:09)
[2020-02-14] MEDS ORDERED: ONDANSETRON HCL INJ/PF 4 MG/2 ML SDV IV ONE (11:09)
--- NOTE | 2020-02-14 11:23 | RADIOLOGY REPORT (SQ) ---
EXAM DESCRIPTION: CT CHEST WITH; CT ABD/PELVIS WITH IV ONLY IMAGES COMPLETED DATE/TIME: 02/14/2020 10:30 am REASON FOR STUDY: fever of unknown source, coughing; RUQ, periumbilical pain, vomiting, fever COMPARISON: CT abdomen pelvis 05/05/2008 AP chest 02/13/2020 TECHNIQUE: CT scan of the chest performed without intravenous contrast using helical scanning techni que. Images reviewed with lung, soft tissue and bone windows. Reconstructed coronal and sagittal MPR images reviewed. All images stored on PACS. CT scan of the abdomen and pelvis performed without intravenous contrast and withoutoral contrast usi ng helical scanning technique with dynamic intravenous contrast injection. Images reviewed with lung , soft tissue and bone windows. Reconstructed coronal and sagittal MPR images reviewed. All images stored on PACS. All CT scanners at this facility use dose modulation, iterative reconstruction, and/or weight based d osing when appropriate to reduce radiation dose to as low as reasonably achievable (ALARA). [facility]: Dose Right [facility]: CareDose [facility]: Dose Right [facility]: Teradose 4D [facility]: [employer] RADIATION DOSE: CT Rad equipment meets quality standard of care and radiation dose reduction techniq ues were employed. CTDIvol: 16.2 - 19.6 mGy. DLP: 2492 mGy-cm. mGy. LIMITATIONS: No technical limitations. FINDINGS: CHEST: AXILLAE: No adenopathy. CHEST WALL: No masses. No subcutaneous air. Mild bilateral gynecomastia LUNGS: No nodules or masses. No pneumothorax. No infiltrates. PLEURA: No effusions. No calcifications. THYROID: No masses or significant asymmetry. HILAR AND MEDIASTINAL STRUCTURES: No identified masses or abnormal nodes. AORTA AND GREAT VESSELS: No aneurysm. HEART: No pericardial effusion. HARDWARE AND LIFELINES: None. BONES: No significant finding. OTHER: No other significant finding. ABDOMEN AND PELVIS: LIVER: Normal size. No masses. No dilated ducts. SPLEEN: Normal size. No focal lesions. PANCREAS: No masses. No significant calcifications. No adjacent inflammation or peripancreatic flui d collections. Pancreatic duct not dilated. GALLBLADDER: No identified stones by CT criteria. No inflammatory changes to suggest cholecystitis. ADRENAL GLANDS: No significant masses or asymmetry. RIGHT KIDNEY AND URETER: No solid masses. Assessment limited by lack of IV contrast. No significant calcifications. No hydronephrosis or hydroureter. LEFT KIDNEY AND URETER: No solid masses. Assessment limited by lack of IV contrast. No significant calcifications. No hydronephrosis or hydroureter. AORTA AND VESSELS: No aneurysm. RETROPERITONEUM: No retroperitoneal adenopathy, hemorrhage or masses. APPENDIX: Normal. LARGE AND SMALL BOWEL: No dilatation. No masses. No wall thickening. ABDOMINAL WALL: No hernia or masses. PERITONEAL CAVITY: No free air. No free fluid. No peritoneal implants or masses. PELVIS: No mass or free fluid. Normal bladder. BONES: No significant or acute findings. OTHER: No other significant finding. IMPRESSION: NORMAL CT OF THE CHEST WITHOUT INTRAVENOUS CONTRAST. NORMAL CT OF THE ABDOMEN AND PELVIS WITHOUT INTRAVENOUS CONTRAST. TECHNICAL DOCUMENTATION: JOB ID: [id number] Quality ID # [id number]: Final reports with documentation of one or more dose reduction techniques (e.g., Au tomated exposure control, adjustment of the mA and/or kV according to patient size, use of iterative reconstruction technique) 2010 [employer]- All Rights Reserved Reading location - IP/workstation name: [id number]
--- NOTE | 2020-02-14 11:23 | RADIOLOGY REPORT (SQ) ---
EXAM DESCRIPTION: CT CHEST WITH; CT ABD/PELVIS WITH IV ONLY IMAGES COMPLETED DATE/TIME: 02/14/2020 10:30 am REASON FOR STUDY: fever of unknown source, coughing; RUQ, periumbilical pain, vomiting, fever COMPARISON: CT abdomen pelvis 05/05/2008 AP chest 02/13/2020 TECHNIQUE: CT scan of the chest performed without intravenous contrast using helical scanning techni que. Images reviewed with lung, soft tissue and bone windows. Reconstructed coronal and sagittal MPR images reviewed. All images stored on PACS. CT scan of the abdomen and pelvis performed without intravenous contrast and withoutoral contrast usi ng helical scanning technique with dynamic intravenous contrast injection. Images reviewed with lung , soft tissue and bone windows. Reconstructed coronal and sagittal MPR images reviewed. All images stored on PACS. All CT scanners at this facility use dose modulation, iterative reconstruction, and/or weight based d osing when appropriate to reduce radiation dose to as low as reasonably achievable (ALARA). [facility]: Dose Right [facility]: CareDose [facility]: Dose Right [facility]: Teradose 4D [facility]: [employer] RADIATION DOSE: CT Rad equipment meets quality standard of care and radiation dose reduction techniq ues were employed. CTDIvol: 16.2 - 19.6 mGy. DLP: 2492 mGy-cm. mGy. LIMITATIONS: No technical limitations. FINDINGS: CHEST: AXILLAE: No adenopathy. CHEST WALL: No masses. No subcutaneous air. Mild bilateral gynecomastia LUNGS: No nodules or masses. No pneumothorax. No infiltrates. PLEURA: No effusions. No calcifications. THYROID: No masses or significant asymmetry. HILAR AND MEDIASTINAL STRUCTURES: No identified masses or abnormal nodes. AORTA AND GREAT VESSELS: No aneurysm. HEART: No pericardial effusion. HARDWARE AND LIFELINES: None. BONES: No significant finding. OTHER: No other significant finding. ABDOMEN AND PELVIS: LIVER: Normal size. No masses. No dilated ducts. SPLEEN: Normal size. No focal lesions. PANCREAS: No masses. No significant calcifications. No adjacent inflammation or peripancreatic flui d collections. Pancreatic duct not dilated. GALLBLADDER: No identified stones by CT criteria. No inflammatory changes to suggest cholecystitis. ADRENAL GLANDS: No significant masses or asymmetry. RIGHT KIDNEY AND URETER: No solid masses. Assessment limited by lack of IV contrast. No significant calcifications. No hydronephrosis or hydroureter. LEFT KIDNEY AND URETER: No solid masses. Assessment limited by lack of IV contrast. No significant calcifications. No hydronephrosis or hydroureter. AORTA AND VESSELS: No aneurysm. RETROPERITONEUM: No retroperitoneal adenopathy, hemorrhage or masses. APPENDIX: Normal. LARGE AND SMALL BOWEL: No dilatation. No masses. No wall thickening. ABDOMINAL WALL: No hernia or masses. PERITONEAL CAVITY: No free air. No free fluid. No peritoneal implants or masses. PELVIS: No mass or free fluid. Normal bladder. BONES: No significant or acute findings. OTHER: No other significant finding. IMPRESSION: NORMAL CT OF THE CHEST WITHOUT INTRAVENOUS CONTRAST. NORMAL CT OF THE ABDOMEN AND PELVIS WITHOUT INTRAVENOUS CONTRAST. TECHNICAL DOCUMENTATION: JOB ID: [id number] Quality ID # [id number]: Final reports with documentation of one or more dose reduction techniques (e.g., Au tomated exposure control, adjustment of the mA and/or kV according to patient size, use of iterative reconstruction technique) 2010 [employer]- All Rights Reserved Reading location - IP/workstation name: [id number]
[2020-02-14 12:51] VITALS: BP 161/86
== END 2020-02-14 13:02 | disposition home or self-care (01) ==
LOC: ER 08:24
DX: K92.0 Hematemesis (principal); J98.8 Other specified respiratory disorders; B97.89 Other viral agents as the cause of diseases classified elsewhere; R50.9 Fever, unspecified; R05 Cough; R10.811 Right upper quadrant abdominal tenderness; R10.815 Periumbilic abdominal tenderness; I10 Essential (primary) hypertension; J45.909 Unspecified asthma, uncomplicated; Z88.0 Allergy status to penicillin
CPT/HCPCS: 99284; 96361; 96374; 96375; 36415; 87040; 87070; 87880; 83605; 85025; 87077; 80053; 81001; 87804; 71260; 74177; J2270; J2405; J7030

== ENCOUNTER 2020-05-26 11:56 | Emergency (ER) | payer SELFPAY ==
--- NOTE | 2020-05-26 12:32 | ER Document Report ---
ED Medical Screen (RME) - General Chief Complaint: Abdominal Pain Stated Complaint: ABDOMINAL PAIN Time Seen by Provider: 05/26/20 12:29 Notes: HPI: 24-year-old male presenting with 10 days of epigastric and right-sided abdominal pain. No fever. Has had occasional nausea no vomiting. Patient reports when he belches he has worsened abdominal pain when he is at work and bending over he also has additional abdominal pain. No real specific change with eating or drinking. No history of abdominal surgeries no fever PHYSICAL EXAMINATION: Mild tenderness in the right lateral and epigastric region of the abdomen. No tenderness in the right lower quadrant on palpation although somewhat limited by positioning in triage I have greeted and performed a rapid initial assessment of this patient. A comprehensive ED assessment and evaluation of the patient, analysis of test results and completion of medical decision making process will be conducted by an additional ED providers. TRAVEL OUTSIDE OF THE [place] IN LAST 30 DAYS: No - Related Data Allergies/Adverse Reactions: Penicillins Allergy (Verified 11/28/19 07:57) Past Medical History - Past Medical History Cardiac Medical History: Reports: Hx Hypertension Pulmonary Medical History: Reports: Hx Asthma - Immunizations Immunizations up to date: Yes Hx Diphtheria, Pertussis, Tetanus Vaccination: Yes Physical Exam - Vital signs Vitals: Temp Pulse Resp BP Pulse Ox 98.5 F 78 18 166/102 H 99 05/26/20 12:05 05/26/20 12:05 05/26/20 12:05 05/26/20 12:05 05/26/20 12:05 Course - Vital Signs Vital signs: Temp Pulse Resp BP Pulse Ox 98.5 F 78 18 166/102 H 99 05/26/20 12:05 05/26/20 12:05 05/26/20 12:05 05/26/20 12:05 05/26/20 12:05
[2020-05-26 13:22] LABS: ABSOLUTE EOSINOPHILS # (AUTO) 0.2 10^3/uL (0.0-0.6); ABSOLUTE LYMPHOCYTES (AUTO) 2.5 10^3/uL (0.5-4.7); ABSOLUTE MONOCYTES (AUTO) 0.5 10^3/uL (0.1-1.4); ABSOLUTE NEUT (AUTO) 3.1 10^3/uL (1.7-8.2); BASOPHILS % (AUTO) 0.6 % (0-2); EOSINOPHILS % (AUTO) 2.6 % (0-6); HEMATOCRIT 38.7 % (37.9-51.0); HEMOGLOBIN 12.9 g/dL (13.5-17.0); LYMPHOCYTES % (AUTO) 39.3 % (13-45); MEAN CORPUSCULAR HEMOGLOBIN 26.8 pg (27.0-33.4); MEAN CORPUSCULAR HGB CONC 33.3 g/dL (32.0-36.0); MEAN CORPUSCULAR VOLUME 81 fl (80-97); MONOCYTES % (AUTO) 7.8 % (3-13); PLATELET COUNT 229 10^3/uL (150-450); RED BLOOD COUNT 4.81 10^6/uL (4.35-5.55); RED CELL DISTRIBUTION WIDTH 14.3 % (11.5-14.0); SEGMENTED NEUTROPHILS % (AUTO) 49.7 % (42-78); TOTAL CELLS COUNTED % (AUTO) 100 %; WHITE BLOOD COUNT 6.3 10^3/uL (4.0-10.5)
[2020-05-26 13:49] LABS: ALBUMIN 4.4 g/dL (3.5-5.0); ALKALINE PHOSPHATASE 105 U/L (38-126); ANION GAP 5 (5-19); ASPARTATE AMINO TRANSFERASE 41 U/L (17-59); BILIRUBIN,TOTAL 0.3 mg/dL (0.2-1.3); BLOOD UREA NITROGEN 11 mg/dL (7-20); CALCIUM 9.3 mg/dL (8.4-10.2); CARBON DIOXIDE 28 mmol/L (22-30); CHLORIDE 106 mmol/L (98-107); GLUCOSE 78 mg/dL (75-110); POTASSIUM 4.5 mmol/L (3.6-5.0); TOTAL PROTEIN 7.7 g/dL (6.3-8.2)
--- NOTE | 2020-05-26 13:58 | RADIOLOGY REPORT (SQ) ---
EXAM DESCRIPTION: U/S ABDOMEN LIMITED W/O DOP IMAGES COMPLETED DATE/TIME: 05/26/2020 1:45 pm REASON FOR STUDY: right abd pain COMPARISON: None. TECHNIQUE: Dynamic and static grayscale images acquired of the abdomen and recorded on PACS. Additio nal selected color Doppler and spectral images recorded. LIMITATIONS: None. FINDINGS: PANCREAS: Visualized portions of the pancreas are normal in appearance. LIVER: No masses. Echotexture normal. LIVER VASCULATURE: Normal directional flow of the main portal vein and hepatic veins. GALLBLADDER: No stones. Normal wall thickness. No pericholecystic fluid. ULTRASOUND-DETECTED PAIGE'S SIGN: Negative. INTRAHEPATIC DUCTS AND COMMON DUCT: CBD and intrahepatic ducts normal caliber. No filling defects. AORTA: No aneurysm. RIGHT KIDNEY: Normal size. Normal echogenicity. No solid or suspicious masses. No hydronephrosis. No calcifications. PERITONEAL AND RIGHT PLEURAL SPACE: No ascites or effusions. OTHER: No other significant findings. IMPRESSION: NORMAL RIGHT UPPER QUADRANT ULTRASOUND. TECHNICAL DOCUMENTATION: JOB ID: [id number] 2010 [employer]- All Rights Reserved Reading location - IP/workstation name: [email or web address]
[2020-05-26 14:03] LABS: APPEARANCE,URINE SLIGHTLY-CLOUDY; BILIRUBIN,URINE NEGATIVE (NEGATIVE); COLOR,URINE YELLOW; GLUCOSE, URINE NEGATIVE (NEGATIVE); KETONES,URINE NEGATIVE (NEGATIVE); LEUKOCYTE ESTERASE,URINE NEGATIVE (NEGATIVE); NITRITE,URINE NEGATIVE (NEGATIVE); PROTEIN,URINE 30 mg/dL (NEGATIVE); URINE SPECIFIC GRAVITY 1.027; UROBILINOGEN,URINE NEGATIVE mg/dL (<2.0)
--- NOTE | 2020-05-26 16:12 | ER Document Report ---
ED GI/ - General Chief Complaint: Abdominal Pain Stated Complaint: ABDOMINAL PAIN Time Seen by Provider: 05/26/20 12:29 Mode of Arrival: Ambulatory Information source: Patient Notes: 24-year-old male patient presents emergency department chief complaint of right lower quadrant abdominal pain. Patient reports pain started yesterday. He states it comes and goes and was worse in the middle of the night. He denies any nausea, vomiting, diarrhea, fever or chills. Nothing makes the pain worse or better it just comes and goes on its own. He has never had any surgeries on his abdomen. He has not taken any medication for his symptoms. TRAVEL OUTSIDE OF THE [place] IN LAST 30 DAYS: No - Related Data Allergies/Adverse Reactions: Penicillins Allergy (Verified 11/28/19 07:57) Past Medical History - General Information source: Patient - Social History Smoking Status: Never Smoker Chew tobacco use (# tins/day): No Frequency of alcohol use: Social Drug Abuse: Marijuana Family History: Reviewed & Not Pertinent, Hypertension - Past Medical History Cardiac Medical History: Reports: Hx Hypertension Pulmonary Medical History: Reports: Hx Asthma - Immunizations Immunizations up to date: Yes Hx Diphtheria, Pertussis, Tetanus Vaccination: Yes Review of Systems - Review of Systems Gastrointestinal: Abdominal pain -: Yes All other systems reviewed and negative Physical Exam - Vital signs Vitals: Temp Pulse Resp BP Pulse Ox 98.5 F 78 18 166/102 H 99 05/26/20 12:05 05/26/20 12:05 05/26/20 12:05 05/26/20 12:05 05/26/20 12:05 - Notes Notes: PHYSICAL EXAMINATION: GENERAL: Well-appearing, well-nourished and in no acute distress. HEAD: Atraumatic, normocephalic. EYES: Pupils equal round and reactive to light, extraocular movements intact, sclera anicteric, conjunctiva are normal. ENT: Nares patent, oropharynx clear without exudates. Moist mucous membranes. NECK: Normal range of motion, supple without lymphadenopathy LUNGS: Breath sounds clear to auscultation bilaterally and equal. No wheezes rales or rhonchi. HEART: Regular rate and rhythm without murmurs ABDOMEN: Soft, nondistended abdomen. Mild tenderness with deep palpation in the right lower quadrant. No guarding, no rebound. No masses appreciated. Musculoskeletal: Normal range of motion, no pitting or edema. No cyanosis. NEUROLOGICAL: Cranial nerves grossly intact. Normal speech, normal gait. Normal sensory, motor exams PSYCH: Normal mood, normal affect. SKIN: Warm, Dry, normal turgor, no rashes or lesions noted. Course - Re-evaluation Re-evalutation: 05/26/20 17:16 Patient appears well, nontoxic, vital signs reviewed and are within normal limits. CBC, CMP, lipase and urinalysis are unremarkable. CT abdomen pelvis and right upper quadrant ultrasound were obtained with no acute findings. Patient will be discharged home at this time with strict ED return precautions. Patient verbalized understanding and agreement with this plan. - Vital Signs Vital signs: Temp Pulse Resp BP Pulse Ox 98.5 F 78 18 166/102 H 99 05/26/20 12:05 05/26/20 12:05 05/26/20 12:05 05/26/20 12:05 05/26/20 12:05 - Laboratory Result Diagrams: 05/26/20 12:49 05/26/20 12:49 Laboratory results interpreted by me: 05/26/20 05/26/20 12:25 12:49 Hgb 12.9 L MCH 26.8 L RDW 14.3 H Urine Protein 30 H Discharge - Discharge Clinical Impression: Abdominal pain Qualifiers: Abdominal location: right lower quadrant Qualified Code(s): R10.31 - Right lower quadrant pain Condition: Stable Disposition: HOME, SELF-CARE Additional Instructions: You have been seen in the Emergency Department (ED) for abdominal pain. Your evaluation did not identify a clear cause of your symptoms but was generally reassuring. Please take medication as prescribed as this may help with your symptoms. Please follow up with your doctor as soon as possible regarding today's emergent visit and the symptoms that are bothering you. Return to the ED if your abdominal pain worsens or fails to improve, you develop bloody vomiting, bloody diarrhea, you are unable to tolerate fluids due to vom iting, fever greater than 101, or other symptoms that concern you. Prescriptions: Dicyclomine HCl [Bentyl 20 mg Tablet] 20 mg PO QID #20 tablet Forms: Return to Work
--- NOTE | 2020-05-26 16:59 | RADIOLOGY REPORT (SQ) ---
EXAM DESCRIPTION: CT ABD/PELVIS WITH IV ONLY IMAGES COMPLETED DATE/TIME: 05/26/2020 4:34 pm REASON FOR STUDY: RLQ abd pain, vomiting COMPARISON: 02/14/2020 TECHNIQUE: CT scan of the abdomen and pelvis performed using helical scanning technique with dynamic intravenous contrast injection. No oral contrast. Images reviewed with lung, soft tissue, and bone windows. Reconstructed coronal and sagittal MPR images reviewed. Delayed images for evaluation of the urinary system also acquired. All images stored on PACS. All CT scanners at this facility use dose modulation, iterative reconstruction, and/or weight based d osing when appropriate to reduce radiation dose to as low as reasonably achievable (ALARA). [facility]: Dose Right [facility]: CareDose [facility]: Dose Right [facility]: Teradose 4D [facility]: [employer] CONTRAST TYPE AND DOSE: contrast/concentration: Isovue 350.00 mmol/ml; Total Contrast Delivered: 100 .0 ml; Total Saline Delivered: 68.8 ml RENAL FUNCTION: BUN 11, creatinine 1.03 RADIATION DOSE: CT Rad equipment meets quality standard of care and radiation dose reduction techniq ues were employed. CTDIvol: 16.0 - 20.1 mGy. DLP: 2047 mGy-cm.. LIMITATIONS: None. FINDINGS: LOWER CHEST: No significant findings. No nodules or infiltrates. LIVER: Normal size. No masses. No dilated ducts. SPLEEN: Normal size. No focal lesions. PANCREAS: No masses. No significant calcifications. No adjacent inflammation or peripancreatic fluid collections. Pancreatic duct not dilated. GALLBLADDER: No identified stones by CT criteria. No inflammatory changes to suggest cholecystitis. ADRENAL GLANDS: No significant masses or asymmetry. RIGHT KIDNEY AND URETER: No solid masses. No significant calcifications. No hydronephrosis or hyd roureter. LEFT KIDNEY AND URETER: No solid masses. No significant calcifications. No hydronephrosis or hydr oureter. AORTA AND VESSELS: No aneurysm. No dissection. Renal arteries, SMA, celiac without stenosis. RETROPERITONEUM: No retroperitoneal adenopathy, hemorrhage or masses. BOWEL AND PERITONEAL CAVITY: No masses or inflammatory changes. No free fluid or peritoneal masses. Occasional small mesenteric lymph nodes identified most likely reactive. APPENDIX: Normal. PELVIS: No mass. No free fluid. Normal bladder. ABDOMINAL WALL: Small umbilical hernia containing omental fat only. BONES: No significant or acute findings. OTHER: No other significant finding. IMPRESSION: NO SIGNIFICANT OR ACUTE FINDING IN THE ABDOMEN OR PELVIS ON CT SCAN WITH IV CONTRAST. TECHNICAL DOCUMENTATION: JOB ID: [id number] Quality ID # [id number]: Final reports with documentation of one or more dose reduction techniques (e.g., Au tomated exposure control, adjustment of the mA and/or kV according to patient size, use of iterative reconstruction technique) 2010 [employer] All Rights Reserved Reading location - IP/workstation name: [email or web address]
[2020-05-26 17:28] VITALS: BP 166/108
== END 2020-05-26 17:28 | disposition home or self-care (01) ==
LOC: ER 11:56
DX: R10.31 Right lower quadrant pain (principal); Z88.0 Allergy status to penicillin
CPT/HCPCS: 36415; 74177; 76705; 80053; 81001; 83690; 85025; 99284

== ENCOUNTER 2020-07-03 18:37 | Emergency (ER) | payer SELFPAY ==
[2020-07-03] MEDS ORDERED: ONDANSETRON HCL INJ/PF 4 MG/2 ML SDV IV ONE (21:52)
[2020-07-03] MEDS ORDERED: NORMAL SALINE 1000 ML 1,000 ML IV ONE (21:52)
[2020-07-03] MEDS ORDERED: KETOROLAC TROMETHAMINE INJ/PF 30 MG/1 ML SDV IV ONE (21:52)
--- NOTE | 2020-07-03 21:57 | ER Document Report ---
ED General - General Chief Complaint: Nausea/Vomiting Stated Complaint: ABDOMINAL PAIN Time Seen by Provider: 07/03/20 19:29 Notes: Patient is a 24-year-old male that comes emergency department for chief complaint of fevers for the past several days, he also states that he has felt nauseated and vomited for the past 3 to 4 days, he vomited 3 times today. He states his stools are loose but he denies frequent stools. He reports generalized mid to upper abdominal pain. He reports occasional cough. He states he had a headache earlier but not now, denies neck stiffness, chest pain, sore throat. He states that his significant other is also ill with the same symptoms although they already got over it. He denies any abdominal surgeries, recent travel, daily medications, or past medical history. He denies smoking, alcohol, recreational drugs. TRAVEL OUTSIDE OF THE [place] IN LAST 30 DAYS: No - Related Data Allergies/Adverse Reactions: Penicillins Allergy (Verified 07/03/20 21:36) Past Medical History - General Information source: Patient - Social History Smoking Status: Never Smoker Frequency of alcohol use: None Drug Abuse: None Lives with: Spouse/Significant other Family History: Reviewed & Not Pertinent, Hypertension - Past Medical History Cardiac Medical History: Reports: Hx Hypertension Pulmonary Medical History: Reports: Hx Asthma - Immunizations Immunizations up to date: Yes Hx Diphtheria, Pertussis, Tetanus Vaccination: Yes Review of Systems - Review of Systems Constitutional: See HPI EENT: No symptoms reported Cardiovascular: No symptoms reported Respiratory: See HPI Gastrointestinal: See HPI Genitourinary: No symptoms reported Male Genitourinary: No symptoms reported Musculoskeletal: No symptoms reported Skin: No symptoms reported Hematologic/Lymphatic: No symptoms reported Neurological/Psychological: No symptoms reported Physical Exam - Vital signs Vitals: Temp Pulse Resp BP Pulse Ox 101.7 F H 97 14 147/90 H 98 07/03/20 20:07 07/03/20 20:07 07/03/20 20:07 07/03/20 20:07 07/03/20 20:07 - Notes Notes: GENERAL: Alert, interacts well. No acute distress. HEAD: Normocephalic, atraumatic. EYES: Pupils equal, round, and reactive to light. Extraocular movements intact. ENT: Oral mucosa moist, tongue midline. Oropharynx unremarkable. Airway patent. Nares patent, sinuses non-tender, ear canals unremarkable, TM's intact. NECK: Full range of motion. Supple. Trachea midline. No lymphadenopathy. LUNGS: Clear to auscultation bilaterally, no wheezes, rales, or rhonchi. No respiratory distress. Non-tender chest wall. HEART: Regular rate and rhythm. No murmur ABDOMEN: Soft, non-tender. Non-distended. No guarding or rigidity. Bowel sounds present in all 4 quadrants. GENITOURINARY: Deferred EXTREMITIES: Moves all 4 extremities spontaneously. No edema, normal radial and dorsalis pedis pulses bilaterally. No cyanosis. BACK: no cervical, thoracic, lumbar midline tenderness. No saddle anesthesia, normal distal neurovascular exam. Moves all extremities in full range of motion. NEUROLOGICAL: Alert and oriented x3. Normal speech. Cranial nerves II through XII grossly intact. Strength 5/5 in all extremities. PSYCH: Normal affect, normal mood. SKIN: Warm, dry, normal turgor. No rashes or lesions noted. Course - Re-evaluation Re-evalutation: Patient is talkative and well-appearing. Lungs clear, abdomen soft, overall evaluation is unremarkable except for his fever. No tachycardia, hypotension, or hypoxia. Chest x-ray is negative, general laboratory work-up unremarkable except for elevated specific gravity. Patient was treated for fever and with IV fluids, he was given Zofran, afterwards he states he feels great. Patient tolerates p.o. without any difficulty. Based on his benign abdomen I have a low suspicion of acute abdomen. Patient reports sick contacts with the same symptoms. Discussed options. Decision was made to test for COVID-19, discussed quarantine and restrictions, discussed follow-up and return precautions. Patient states understanding and agreement. Stable and well-appearing at time of discharge. - Vital Signs Vital signs: Temp Pulse Resp BP Pulse Ox 100 F 87 20 162/90 H 100 07/04/20 00:37 07/04/20 00:37 07/04/20 00:37 07/04/20 00:37 07/04/20 00:37 - Laboratory Result Diagrams: 07/03/20 22:54 07/03/20 22:54 Laboratory results interpreted by me: 07/03/20 07/03/20 22:54 22:54 MCH 26.6 L RDW 14.1 H Urine Protein 30 H Urine Ketones TRACE H Urine Urobilinogen 2.0 H Discharge - Discharge Clinical Impression: Body aches, Person under investigation for COVID-19 Fever Qualifiers: Fever type: unspecified Qualified Code(s): R50.9 - Fever, unspecified Nausea and vomiting Qualifiers: Vomiting type: unspecified Vomiting Intractability: non-intractable Qualified Code(s): R11.2 - Nausea with vomiting, unspecified Condition: Stable Disposition: HOME, SELF-CARE Additional Instructions: Your tests do not show any concerning findings. Your symptoms and examination suggest this is most likely viral. This should go away with time. You have been tested for COVID-19, you will be contacted with results. Please quarantine until you are contacted and follow directions afterwards. See additional instructions below. Take Zofran if needed for nausea/vomiting, take Tylenol and/or ibuprofen for body aches and fever/chills. Drink plenty of fluids and rest. Return if you worsen including uncontrolled vomiting, severe worsening abdominal pain, difficulty breathing, chest pain, or any other concerning symptoms. As a person under investigation for COVID-19, the [place] Department of Health and Human Services (division on public health) advises you to adhere to the following guidance until your test results are reported to you. If your test result is positive, you will receive additional information from your provider and your local health department at that time. Remain at home until you are cleared by the health provider or public health authorities. Keep a log of visitors to your home, notify any visitors to your home of your isolation status. If you plan to move to a new address or leave the county, notify the local health department in your County. Call your Doctor or seek care if you have an urgent medical need. Before seeking medical care, call him to get instructions from the provider before arriving at the medical office, clinic, or hospital. Notify them that you are being tested for the virus (COVID-19) so that arrangements can be made, as necessary, to prevent transmission to others in the healthcare setting. Next, notify the local health department in your county. If a medical emergency arises and you need to call 911, inform the first responders that you are being tested for the virus that causes COVID-19. Next, notify the local health department in your county. Prescriptions: Ondansetron [Zofran Odt 4 mg Tablet] 1 - 2 tab PO Q4H PRN #15 tab.rapdis PRN Reason: For Nausea/Vomiting
--- NOTE | 2020-07-03 23:02 | RADIOLOGY REPORT (SQ) ---
EXAM DESCRIPTION: XR CHEST 1 VIEW COMPLETED DATE/TME: 07/03/2020 21:52 CLINICAL HISTORY: 24 years Male fever, cough COMPARISON: 02/13/2020. FINDINGS: The cardiomediastinal silhouette appears unremarkable. No consolidating infiltrates or pleural effusions. No pneumothorax. IMPRESSION: No acute abnormality is identified. No pulmonary opacities identified. Please note that chest radiographs have low sensitivity for subtle groundglass opacities.
[2020-07-03 23:09] LABS: ABSOLUTE EOSINOPHILS # (AUTO) 0.1 10^3/uL (0.0-0.6); ABSOLUTE LYMPHOCYTES (AUTO) 1.1 10^3/uL (0.5-4.7); ABSOLUTE MONOCYTES (AUTO) 0.8 10^3/uL (0.1-1.4); ABSOLUTE NEUT (AUTO) 4.3 10^3/uL (1.7-8.2); BASOPHILS % (AUTO) 0.4 % (0-2); EOSINOPHILS % (AUTO) 0.8 % (0-6); HEMATOCRIT 41.8 % (37.9-51.0); HEMOGLOBIN 13.9 g/dL (13.5-17.0); MEAN CORPUSCULAR HEMOGLOBIN 26.6 pg (27.0-33.4); MEAN CORPUSCULAR HGB CONC 33.1 g/dL (32.0-36.0); MEAN CORPUSCULAR VOLUME 80 fl (80-97); MONOCYTES % (AUTO) 12.8 % (3-13); PLATELET COUNT 201 10^3/uL (150-450); RED BLOOD COUNT 5.21 10^6/uL (4.35-5.55); RED CELL DISTRIBUTION WIDTH 14.1 % (11.5-14.0); TOTAL CELLS COUNTED % (AUTO) 100 %; WHITE BLOOD COUNT 6.3 10^3/uL (4.0-10.5)
[2020-07-03 23:25] LABS: ALBUMIN 4.5 g/dL (3.5-5.0); ALKALINE PHOSPHATASE 100 U/L (38-126); ANION GAP 9 (5-19); ASPARTATE AMINO TRANSFERASE 30 U/L (17-59); BILIRUBIN,TOTAL 0.5 mg/dL (0.2-1.3); BLOOD UREA NITROGEN 11 mg/dL (7-20); CALCIUM 8.9 mg/dL (8.4-10.2); CARBON DIOXIDE 30 mmol/L (22-30); CHLORIDE 100 mmol/L (98-107); GLUCOSE 94 mg/dL (75-110); POTASSIUM 3.9 mmol/L (3.6-5.0); TOTAL PROTEIN 8.1 g/dL (6.3-8.2)
[2020-07-03 23:40] LABS: APPEARANCE,URINE SLIGHTLY-CLOUDY; BILIRUBIN,URINE NEGATIVE (NEGATIVE); COLOR,URINE AMBER; GLUCOSE, URINE NEGATIVE (NEGATIVE); KETONES,URINE TRACE mg/dL (NEGATIVE); LEUKOCYTE ESTERASE,URINE NEGATIVE (NEGATIVE); NITRITE,URINE NEGATIVE (NEGATIVE); PROTEIN,URINE 30 mg/dL (NEGATIVE); URINE SPECIFIC GRAVITY 1.028
[2020-07-04] MEDS ORDERED: ONDANSETRON ODT 4 MG TAB (6 TAB/ER DISP) PO PRN (00:10)
[2020-07-04 00:38] VITALS: BP 162/90
== END 2020-07-04 00:37 | disposition home or self-care (01) ==
LOC: ER 18:37
DX: M79.10 Myalgia, unspecified site (principal); R11.2 Nausea with vomiting, unspecified; R50.9 Fever, unspecified; R10.9 Unspecified abdominal pain; R19.7 Diarrhea, unspecified; R10.84 Generalized abdominal pain; R10.10 Upper abdominal pain, unspecified; R05 Cough; R51 Headache; Z88.0 Allergy status to penicillin; I10 Essential (primary) hypertension; J45.909 Unspecified asthma, uncomplicated; Z20.828 Contact with and (suspected) exposure to other viral communicable diseases
CPT/HCPCS: 99284; 96361; 96374; 96375; 36415; 83690; 85025; 87635; 80053; 81001; 71045; J1885; J2405; J7030; C9803

== ENCOUNTER 2020-07-05 18:38 | Emergency (ER) | payer SELFPAY ==
[2020-07-05] MEDS ORDERED: PROMETHAZINE HCL 25 MG TABLET PO ONE (19:16)
[2020-07-05] MEDS ORDERED: IBUPROFEN 600 MG TABLET PO ONE (19:17)
[2020-07-05] MEDS ORDERED: NORMAL SALINE 1000 ML 1,000 ML IV ONE (19:18)
--- NOTE | 2020-07-05 19:20 | ER Document Report ---
ED Medical Screen (RME) - General Chief Complaint: Breathing Difficulty Stated Complaint: WHEEZING/DIFFICULTLY BREATHING Time Seen by Provider: 07/05/20 19:10 Mode of Arrival: Ambulatory Information source: Patient Notes: 24-year-old male patient presenting to the emergency department chief complaint of nausea, vomiting, diarrhea, abdominal cramping, cough and shortness of breath. Patient reports he was seen here last night and diagnosed with the flu. He states his symptoms are worsening. Upon review of the record patient was not seen for the flu but was indeed tested for COVID-19 and is under investigation. He does have COVID-19 symptoms and likely will be COVID-19 positive. Patient is very anxious, stating he needs to be admitted for his symptoms because he has been sick for 5 days now and feels that it should have been gone by now. Patient reports his fiance had similar symptoms last week that resolved. Patient's lung sounds are clear and equal bilaterally, he is breathing 20 times per minute, he is not hypoxic, tachypneic or tachycardic. He does have a fever. He will be given ibuprofen and a dose of Phenergan as he states the Zofran he was sent home with does not work. I have greeted and performed a rapid initial assessment of this patient. A comprehensive ED assessment and evaluation of the patient, analysis of test results and completion of the medical decision making process will be conducted by additional ED providers. I have specifically instructed the patient or family members with the patient to immediately return to any nursing staff should anything change in the patient's condition or with their chief complaint. TRAVEL OUTSIDE OF THE [place] IN LAST 30 DAYS: No - Related Data Allergies/Adverse Reactions: Penicillins Allergy (Verified 07/03/20 21:36) Past Medical History - Past Medical History Cardiac Medical History: Reports: Hx Hypertension Pulmonary Medical History: Reports: Hx Asthma - Immunizations Immunizations up to date: Yes Hx Diphtheria, Pertussis, Tetanus Vaccination: Yes Physical Exam - Vital signs Vitals: Temp Pulse Resp BP Pulse Ox 101.4 F H 100 20 146/67 H 99 07/05/20 18:51 07/05/20 18:51 07/05/20 18:51 07/05/20 18:51 07/05/20 18:51 Course - Vital Signs Vital signs: Temp Pulse Resp BP Pulse Ox 101.4 F H 100 20 146/67 H 99 07/05/20 18:51 07/05/20 18:51 07/05/20 18:51 07/05/20 18:51 07/05/20 18:51
--- NOTE | 2020-07-05 20:15 | RADIOLOGY REPORT (SQ) ---
EXAM DESCRIPTION: XR CHEST 1 VIEW COMPLETED DATE/TME: 07/05/2020 19:17 CLINICAL HISTORY: 24 years Male COUGH/FEVER/SOB/COVID EXPOSURE COMPARISON: None. FINDINGS: The cardiomediastinal silhouette appears unremarkable. No pneumothorax. No consolidation. Study is limited by soft tissue artifact. There appears to be some developing density in the right midlung field and right lung base which could reflect developing pneumonia. IMPRESSION: Positive for pulmonary opacities. Differential diagnosis includes viral infections.
[2020-07-05] MEDS ORDERED: AZITHROMYCIN 250 MG TABLET PO ONE (21:08)
[2020-07-05] MEDS ORDERED: DEXAMETHASONE 4 MG TABLET PO ONE (21:08)
--- NOTE | 2020-07-05 21:25 | ER Document Report ---
Entered by PAM JETT SCRIBE 07/05/202105 Acting as scribe for:CHRIS MOORE IV, MD ED General - General Chief Complaint: Breathing Difficulty Stated Complaint: WHEEZING/DIFFICULTLY BREATHING Time Seen by Provider: 07/05/20 19:10 Mode of Arrival: Ambulatory Information source: Patient Notes: This 24 year old male patient presents to the ED today with complaints of worsening shortness of breath that started around 0300 this morning. Patient also reports fever, body aches, and nausea/vomiting for the last x1 week. Patient was seen here yesterday and was tested for COVID. He was discharged with return precautions and a prescription for Zofran which he states provided no relief. He is a current every day smoker, smokes about x3 packs/week. Denies any other complaints. TRAVEL OUTSIDE OF THE [place] IN LAST 30 DAYS: No - Related Data Allergies/Adverse Reactions: Penicillins Allergy (Verified 07/03/20 21:36) Past Medical History - General Information source: Patient - Social History Smoking Status: Current Every Day Smoker Cigarette use (# per day): Yes - 3ppwk Smoking Education Provided: Yes Family History: Reviewed & Not Pertinent, Hypertension Patient has suicidal ideation: No Patient has homicidal ideation: No - Past Medical History Cardiac Medical History: Reports: Hx Hypertension Pulmonary Medical History: Reports: Hx Asthma - Immunizations Immunizations up to date: Yes Hx Diphtheria, Pertussis, Tetanus Vaccination: Yes Review of Systems - Review of Systems Constitutional: See HPI, Fever EENT: No symptoms reported Cardiovascular: No symptoms reported Respiratory: See HPI, Short of breath Gastrointestinal: See HPI, Nausea, Vomiting Genitourinary: No symptoms reported Male Genitourinary: No symptoms reported Musculoskeletal: See HPI, Muscle pain Skin: No symptoms reported Hematologic/Lymphatic: No symptoms reported Neurological/Psychological: No symptoms reported -: Yes All other systems reviewed and negative Physical Exam - Vital signs Vitals: Temp Pulse Resp BP Pulse Ox 101.4 F H 100 20 146/67 H 99 07/05/20 18:51 07/05/20 18:51 07/05/20 18:51 07/05/20 18:51 07/05/20 18:51 - General General appearance: Alert, Other - Nontoxic appearance In distress: None - HEENT Head: Normocephalic, Atraumatic Eyes: Normal Pupils: PERRL - Respiratory Respiratory status: No respiratory distress. No: Tachypnea Chest status: Nontender Breath sounds: Normal. No: Decreased air movement, Wheezing Chest palpation: Normal - Cardiovascular Rhythm: Regular Heart sounds: Normal auscultation Murmur: No Friction rub: No Gallop: None auscultated - Abdominal Inspection: Normal Distension: No distension Bowel sounds: Normal Tenderness: Nontender - Abdomen soft Organomegaly: No organomegaly - Back Back: Normal, Nontender - Extremities General upper extremity: Normal inspection General lower extremity: Normal inspection - Neurological Neuro grossly intact: Yes Orientation: AAOx4 Pj Coma Scale Eye Opening: Spontaneous Pj Coma Scale Verbal: Oriented [place] Coma Scale Motor: Obeys Commands Pj Coma Scale Total: 15 - Psychological Associated symptoms: Normal affect, Normal mood - Skin Skin Temperature: Warm Skin Moisture: Dry Skin Color: Normal Course - Re-evaluation Re-evalutation: 07/05/20 21:10 Results of ED MSE discussed with patient. Interval appearance of opacifications bilaterally on chest x-ray also discussed with patient. Patient was counseled in terms of possible diagnoses including bacterial pneumonia, viral pneumonia, COVID 19 infection. Patient appears nontoxic is able speak in full sentences and appears well enough to be discharged home with a prescription for Zithromax and instructions on social distancing. All questions were answered prior to discharge. COVID precautions also discussed with patient. Emergency signs and symptoms, reasons to return to the ED discussed with patient as well. 07/05/20 22:01 Patient's COVID testing resulted after he was discharged but before he had left the emergency department. Patient's COVID test is positive. Results of test discussed with patient, precautions, emergency signs and symptoms and reasons to return to the emergency department also discussed with patient. - Vital Signs Vital signs: Temp Pulse Resp BP Pulse Ox 101.4 F H 100 20 146/67 H 99 07/05/20 18:51 07/05/20 18:51 07/05/20 18:51 07/05/20 18:51 07/05/20 18:51 - Diagnostic Test Radiology reviewed: Reports reviewed Discharge - Discharge Clinical Impression: Person under investigation for COVID-19, Lab test positive for detection of COVID-19 virus Fever Qualifiers: Fever type: unspecified Qualified Code(s): R50.9 - Fever, unspecified Pneumonia Qualifiers: Pneumonia type: due to unspecified organism Laterality: unspecified laterality Lung location: unspecified part of lung Qualified Code(s): J18.9 - Pneumonia, unspecified organism Condition: Stable Disposition: HOME, SELF-CARE Instructions: COVID-19 Guidance for Persons Under Investigation Additional Instructions: Return to the Emergency Department without delay if any worse. Your COVID-19 test just resulted as positive. Remember precautions as discussed. HOME CARE INSTRUCTIONS & INFORMATION: Thank you for choosing us for your medical needs. We hope you're satisfied with the care you received. After you leave, you must properly care for your problem and, at the same time, observe its progress. Any condition can change. Some illnesses can change rapidly over hours or days. If your condition worsens, return to the Emergency Department or see your physician promptly. ABOUT YOUR X-RAYS AND EKG'S: If you had an EKG or X-rays taken, they have been read by the Emergency Physician. The X-rays and EKG's will also be read by a Radiologist or Pressing Machine Operator within 24 hours. If discrepancies are noted, you will be notified by telephone. Please be certain the ED has a correct telephone number & address where you can be reached. Also, realize that some fractures or abnormalities do not show up on initial X-rays. If your symptoms continue, see your physician. ABOUT YOUR LABORATORY TEST: If you had laboratory tests, the results have been reviewed by the Emergency Physician. Some test results (for example cultures) may not be available for several days. You will be contacted if any test result shows you need additional treatment. Please be certain the ED has a correct telephone number and address where you can be reached. ABOUT YOUR MEDICATIONS: You will receive instructions on how to take your medicine on the prescription label you receive. Additional information may be provided by the Pharmacy. If you have questions afterwards, call the ED for clarification or further instructions. Some prescribed medications may cause drowsiness. Do not perform tasks such as driving a car or operating machinery without consulting your Pharmacist. If you feel you need a refill of pain medication, your condition will need re-evaluation. Please do not call for a refill of any medication. ABOUT YOUR SIGNATURE: Signature of this document acknowledges to followin. Understanding that you received emergency treatment and that you may be released before al medical problems are known or treated. Please be certain the ED has a correct phone number & address where you can be reached. 2. Acknowledgement that you will arrange for follow-up care as recommended. 3. Authorization for the Emergency Physician to provide information to your f ollow-up Physician in order to maximize your care. AT ANY TIME, IF YOUR SYMPTOMS CHANGE SIGNIFICANTLY OR WORSEN OR YOU DEVELOP NEW SYMPTOMS, RETURN TO THE EMERGENCY DEPARTMENT IMMEDIATELY FOR RE-EVALUATION. OUR GOAL IS TO PROVIDE EXCELLENT MEDICAL CARE! WE HOPE THAT WE HAVE MET YOUR EXPECTATIONS DURING YOUR EMERGENCY DEPARTMENT VISIT AND THAT YOU FEEL YOU HAVE RECEIVED EXCELLENT CARE! Pneumonia Your examination indicates that you have pneumonia. This is an infection of the lung tissue, usually caused by bacteria or a virus. Symptoms include cough, fever, shaking chills, chest pain, shortness of breath, and coughing up bloody sputum. Treatment for bacterial pneumonia includes rest, antibiotics for 10 to 14 days, increasing your clear liquid intake, a cool mist humidifier at your bedside, and fever medication. Often, a repeat chest X-ray is performed in a few weeks--even if you feel better--to ascertain whether the infection has completely resolved and no underlying lung problem is present. You should call the physician if you develop persistent vomiting, high fever that does not respond to fever medication, increasing shortness of breath, confusion, or lethargy. Also, failure to improve within two to three days is an indication for re-examination. Prescriptions: Azithromycin [Zithromax 250 mg Tablet] 250 mg PO ASDIR PRN 4 Days #4 tablet PRN Reason: Forms: Return to Work I personally performed the services described in the documentation, reviewed and edited the documentation which was dictated to the scribe in my presence, and it accurately records my words and actions.
--- NOTE | 2020-07-05 22:01 | ER Document Report ---
Doctor's Note Notes: 07/05/20 21:59 After patient received discharge paperwork, patient's nurse notified this MD that the COVID swab happened to result much earlier than anticipated and was positive. This MD informed patient that he was in fact COVID positive and was instructed of the importance of social distancing, wearing a mask, isolating himself from others, and to expect a follow-up call from the health department probably in 2 days. Again emergency signs and symptoms, worsening of symptoms, other reasons to return to the emergency department discussed with patient.
[2020-07-05 23:41] VITALS: BP 142/85
--- NOTE | 2020-07-06 20:24 | EKG REPORT ---
SEVERITY:- ABNORMAL ECG - SINUS RHYTHM CONSIDER LEFT VENTRICULAR HYPERTROPHY BORDERLINE T ABNORMALITIES, INFERIOR LEADS : Confirmed by: Costa Benavidez 06-Jul-2020 20:24:09
== END 2020-07-05 22:00 | disposition home or self-care (01) ==
LOC: ER 18:38
DX: U07.1 COVID-19 (principal); J18.9 Pneumonia, unspecified organism; J45.909 Unspecified asthma, uncomplicated; R06.02 Shortness of breath; R50.9 Fever, unspecified; R11.2 Nausea with vomiting, unspecified; M79.10 Myalgia, unspecified site; F17.210 Nicotine dependence, cigarettes, uncomplicated; I10 Essential (primary) hypertension; Z88.0 Allergy status to penicillin
CPT/HCPCS: 93005; 99285; 96360; 96361; 71045; 93010; J8540; J7030